=== PATIENT | female | born 1950 | race Hispanic/Latino ===

== ENCOUNTER 2018-01-23 18:05 | Emergency (ER) | payer OTHER ==
--- NOTE | 2018-01-23 19:06 | ER ---
Nurse's Notes [facility] Name: Araceli Celis Age: 67 yrs Sex: Female : 1950 Arrival Date: 01/23/2018 Time: 18:10 Bed 20 Private MD: Diagnosis: Essential (primary) hypertension Presentation: 01/23 18:16 Presenting complaint: Patient states: Sent by Dr Valdes for evaluation of HTN. Patient aj had previous HX of HTN but does not believe that she has HTN and does not take medication because " I don't have high blood pressure and I don't want to take that medicine." Patient has been seen in this facility for HTN several times. Transition of care: patient was not received from another setting of care. Onset of symptoms was January 23, 2018. Risk Assessment: Do you want to hurt yourself or someone else? Patient reports no desire to harm self or others. Initial Sepsis Screen: Does the patient meet any 2 criteria? No. Patient's initial sepsis screen is negative. Does the patient have a suspected source of infection? No. Patient's initial sepsis screen is negative. Care prior to arrival: None. 18:16 Method Of Arrival: Ambulatory 18:16 Acuity: CASTRO 2 aj Triage Assessment: 18:18 General: Appears in no apparent distress. comfortable, Behavior is calm, cooperative, aj appropriate for age. Pain: Denies pain. Neuro: Level of Consciousness is awake, alert, obeys commands, Oriented to person, place, time, situation, Appropriate for age. Neuro: Pupils are dilated. Respiratory: Airway is patent Respiratory effort is even, unlabored, Respiratory pattern is regular, symmetrical. Derm: Skin is intact, is healthy with good turgor, Skin is pink, warm \\T\\ dry. normal. Historical: - Allergies: 18:18 loratadine; aj 18:18 TETRACYCLINES; aj - Home Meds: 18:18 None [Active]; aj - PMHx: 18:18 hiatal hernia; aj - PSHx: 18:18 bladder surgery; aj - Immunization history:: Adult Immunizations up to date. - Social history:: Smoking status: Patient/guardian denies using tobacco. - Ebola Screening: : Patient negative for fever greater than or equal to 101.5 degrees Fahrenheit, and additional compatible Ebola Virus Disease symptoms Patient denies exposure to infectious person Patient denies travel to an Ebola-affected area in the 21 days before illness onset No symptoms or risks identified at this time. Screenin:26 Abuse screen: Denies threats or abuse. Nutritional screening: No deficits noted. em Tuberculosis screening: No symptoms or risk factors identified. Fall Risk None identified. Assessment: 18:26 General: Appears in no apparent distress. comfortable, Behavior is calm, cooperative. em General: Reports pt reports being stressed and hungry, does not want medication for BP, sates she will feel better after eating. Pain: Denies pain. Neuro: Level of Consciousness is awake, alert, obeys commands, Oriented to person, place, time, situation, Denies weakness blurred vision dizziness, headache. Cardiovascular: Capillary refill < 3 seconds Patient's skin is warm and dry. Respiratory: Airway is patent Respiratory effort is even, unlabored, Respiratory pattern is regular, symmetrical, Breath sounds are clear bilaterally. GI: Abdomen is flat, Patient currently denies nausea, vomiting. : No signs and/or symptoms were reported regarding the genitourinary system. EENT: No signs and/or symptoms were reported regarding the EENT system. Derm: Skin is intact, Skin is pink, warm \\T\\ dry. Musculoskeletal: Range of motion: intact in all extremities. 18:30 General: The previous assessment is accurate, call light remains within reach. 19:16 Reassessment: Patient appears in no apparent distress at this time. Patient and/or em family updated on plan of care and expected duration. Pain level reassessed. Patient is alert, oriented x 3, equal unlabored respirations, skin warm/dry/pink. Patient denies pain at this time. Vital Signs: 18:18 BP 196 / 106; Pulse 92; Resp 18; Temp 97.2; Pulse Ox 98% on R/A; Weight 68.04 kg; aj Height 5 ft. 2 in. (157.48 cm); 18:26 BP 193 / 106; Pulse 90; Resp 18; Pulse Ox 99% on R/A; Pain 0/10; em 19:15 BP 186 / 91; Pulse 87; Resp 19; Pulse Ox 99% on R/A; Pain 0/10; em 18:18 Body Mass Index 27.44 (68.04 kg, 157.48 cm) ED Course: 18:10 Patient arrived in ED. mr 18:17 Triage completed. aj 18:18 Arm band placed on right wrist. Patient placed in an exam room. aj 18:21 Dave Landers NP is PHCP. pm1 18:21 Benjamin Bonds MD is Attending Physician. pm1 18:22 Sarkis Correia LVN is Primary Nurse. em 18:26 Patient has correct armband on for positive identification. Placed in gown. Bed in low em position. Call light in reach. 19:04 Sree Edwards MD is Referral Physician. pm1 19:10 No provider procedures requiring assistance completed. Patient did not have IV access em during this emergency room visit. Administered Medications: No medications were administered Outcome: 19:05 Discharge ordered by . pm1 19:10 Discharged to home ambulatory. em 19:10 Condition: good 19:10 Discharge instructions given to patient, Instructed on discharge instructions, follow up and referral plans. Demonstrated understanding of instructions, follow-up care. 19:16 Patient left the ED. em Signatures: Desirae Escamilla RN RN aj DarinAdry mr Sarkis Correia LVN LVN em Cynthia Baca RN RN Dave Landers NP CLAM SHUCKER pm1 Corrections: (The following items were deleted from the chart) 18:18 18:16 Presenting complaint: Patient states: Sent by Dr Valdes for evaluation of HTN. aj Patient had previous HX of HTN but does not believe that she has HTN and does not take medication because " I don't have high blood pressure and I don't want to take that medicine." aj
--- NOTE | 2018-01-23 19:06 | EDPHYS ---
Physician Documentation [facility] Name: Araceli Celis Age: 67 yrs Sex: Female : 1950 Arrival Date: 01/23/2018 Time: 18:10 Bed 20 Private MD: ED Physician Benjamin Bonds HPI: 01/23 19:04 This 67 yrs old Female presents to ER via Ambulatory with complaints of High pm1 Blood Pressure. 19:04 The patient has elevated blood pressure and discovered this at a physician's office, pm1 and sent to the emergency department for evaluation. Onset: The symptoms/episode began/occurred today. Modifying factors: The symptoms are aggravated by Patient reports anxiety and frustration with being in eye doctor's office all day. Associated signs and symptoms: The patient has no apparent associated signs or symptoms, Pertinent negatives: chest pain, dizziness, dyspnea, headache, lightheadedness, nausea, visual changes, vomiting, weakness. The patient has experienced similar episodes in the past, chronically. The patient has been recently seen by a physician: Dr. Valdes for eye examination. Patient with a history of hypertension. Patient has been placed on multiple different blood pressure medications in the past by her PCP and patient refused to continue taking any off them due to various side effects with each medication trial. Patient does not want to take any blood pressure medications and reports that he elevated blood pressure today is a result of stress from being in the doctor's office all day. She wants to go home and eat some food prior to taking any medications. Historical: - Allergies: 18:18 loratadine; aj 18:18 TETRACYCLINES; aj - Home Meds: 18:18 None [Active]; aj - PMHx: 18:18 hiatal hernia; aj - PSHx: 18:18 bladder surgery; aj - Immunization history:: Adult Immunizations up to date. - Social history:: Smoking status: Patient/guardian denies using tobacco. - Ebola Screening: : Patient negative for fever greater than or equal to 101.5 degrees Fahrenheit, and additional compatible Ebola Virus Disease symptoms Patient denies exposure to infectious person Patient denies travel to an Ebola-affected area in the 21 days before illness onset No symptoms or risks identified at this time. ROS: 19:04 Constitutional: Negative for fever, chills, and weight loss, Eyes: Negative for injury, pm1 pain, redness, and discharge, ENT: Negative for injury, pain, and discharge, Neck: Negative for injury, pain, and swelling, Cardiovascular: Negative for chest pain, palpitations, and edema, Respiratory: Negative for shortness of breath, cough, wheezing, and pleuritic chest pain, Abdomen/GI: Negative for abdominal pain, nausea, vomiting, diarrhea, and constipation, Back: Negative for injury and pain, : Negative for injury, bleeding, discharge, and swelling, MS/Extremity: Negative for injury and deformity, Skin: Negative for injury, rash, and discoloration, Neuro: Negative for headache, weakness, numbness, tingling, and seizure. Exam: 19:04 Constitutional: This is a well developed, well nourished patient who is awake, alert, pm1 and in no acute distress. Head/Face: Normocephalic, atraumatic. Eyes: Pupils equal round and reactive to light, extra-ocular motions intact. Lids and lashes normal. Conjunctiva and sclera are non-icteric and not injected. Cornea within normal limits. Periorbital areas with no swelling, redness, or edema. ENT: Nares patent. No nasal discharge, no septal abnormalities noted. Tympanic membranes are normal and external auditory canals are clear. Oropharynx with no redness, swelling, or masses, exudates, or evidence of obstruction, uvula midline. Mucous membranes moist. Neck: Trachea midline, no thyromegaly or masses palpated, and no cervical lymphadenopathy. Supple, full range of motion without nuchal rigidity, or vertebral point tenderness. No Meningismus. Chest/axilla: Normal chest wall appearance and motion. Nontender with no deformity. No lesions are appreciated. Cardiovascular: Regular rate and rhythm with a normal S1 and S2. No gallops, murmurs, or rubs. Normal PMI, no JVD. No pulse deficits. Respiratory: Lungs have equal breath sounds bilaterally, clear to auscultation and percussion. No rales, rhonchi or wheezes noted. No increased work of breathing, no retractions or nasal flaring. Abdomen/GI: Soft, non-tender, with normal bowel sounds. No distension or tympany. No guarding or rebound. No evidence of tenderness throughout. Back: No spinal tenderness. No costovertebral tenderness. Full range of motion. Skin: Warm, dry with normal turgor. Normal color with no rashes, no lesions, and no evidence of cellulitis. MS/ Extremity: Pulses equal, no cyanosis. Neurovascular intact. Full, normal range of motion. 19:04 Neuro: Orientation: is normal, Mentation: is normal, Cranial nerves: CN II- XII are normal as tested, Cerebellar function: normal finger to nose testing, Motor: moves all fours, strength is normal, strength is 5/5 in all extremities, Sensation: is normal, no obvious gross deficits, Gait: is steady, at a normal pace, without difficulty. Vital Signs: 18:18 BP 196 / 106; Pulse 92; Resp 18; Temp 97.2; Pulse Ox 98% on R/A; Weight 68.04 kg; aj Height 5 ft. 2 in. (157.48 cm); 18:26 BP 193 / 106; Pulse 90; Resp 18; Pulse Ox 99% on R/A; Pain 0/10; em 19:15 BP 186 / 91; Pulse 87; Resp 19; Pulse Ox 99% on R/A; Pain 0/10; em 18:18 Body Mass Index 27.44 (68.04 kg, 157.48 cm) aj MDM: 18:21 Patient medically screened. pm1 19:04 Data reviewed: vital signs. Data interpreted: Pulse oximetry: on room air is 99 %. pm1 Interpretation: normal. Counseling: I had a detailed discussion with the patient and/or guardian regarding: the historical points, exam findings, and any diagnostic results supporting the discharge/admit diagnosis, the need for outpatient follow up, a family practitioner, to return to the emergency department if symptoms worsen or persist or if there are any questions or concerns that arise at home. 19:15 Refusal of service: The patient/guardian displays adequate decision making capability pm1 and despite a detailed discussion of alternatives, benefits, risks, and consequences refuses: all lab tests, Medications, Will give the patient a prescription of medications for her blood pressure after eating food. Patient did not want to eat any food from the hospital or to have anyone bring her any food from outside. Believes that her will not be able to get her the right food. Patient's blood pressure improved and will prescribe Norvasc and instructed patient to follow up with her PCP for further blood pressure management . Administered Medications: No medications were administered Disposition: 01/23/18 19:05 Discharged to Home. Impression: Essential (primary) hypertension. - Condition is Stable. - Discharge Instructions: Hypertension, How to Take Your Blood Pressure, [id number], DASH Eating Plan, Managing Your Hypertension. - Prescriptions for Norvasc 10 mg Oral Tablet - take 1 tablet by ORAL route once daily; 30 tablet. - Medication Reconciliation Form, Thank You Letter form. - Follow up: Emergency Department; When: As needed; Reason: Worsening of condition. Follow up: Sree Edwards MD; When: 2 - 3 days; Reason: Recheck today's complaints, Continuance of care, Re-evaluation by your physician. - Problem is new. - Symptoms have improved. Addendum: 01/26/2018 09:37 Co-signature as Attending Physician, Benjamin Bonds MD I agree with the assessment and c noel plan of care. Signatures: Desirae Escamilla RN RN aj Anderson, Corey, MD MD cha Munoz, Edgar, MANAGER AVIATION MANAGER AVIATION em Dave Landers, KNOWLEDGE ANALYST KNOWLEDGE ANALYST pm1 Corrections: (The following items were deleted from the chart) 01/23 19:16 19:05 01/23/2018 19:05 Discharged to Home. Impression: Essential (primary) em hypertension. Condition is Stable. Forms are Medication Reconciliation Form, Thank You Letter, Antibiotic Education, Prescription Opioid Use. Follow up: Emergency Department; When: As needed; Reason: Worsening of condition. Follow up: Sree Edwards; When: 2 - 3 days; Reason: Recheck today's complaints, Continuance of care, Re-evaluation by your physician. Problem is new. Symptoms have improved. pm1
[2018-01-23 21:05] VITALS: TEMP 97.2
[2018-01-23 21:06] VITALS: O2SAT 99
[2018-01-23 21:08] VITALS: BP 186/91
== END 2018-01-23 19:16 | disposition home or self-care (01) ==
LOC: ER 18:05
DX: I10 Essential (primary) hypertension (principal); Z88.1 Allergy status to other antibiotic agents; Z88.8 Allergy status to other drugs, medicaments and biological substances
CPT/HCPCS: 99281

== ENCOUNTER 2018-10-10 02:07 | Inpatient (IN) | payer OTHER ==
[2018-10-10 03:24] LABS: Absolute Lymphocytes (CBC) 2.7 K/uL (0.7-4.9); Basophils % 0.4 % (0-1.3); Hematocrit 45.5 % (36.0-45.0); Lymphocytes % 30.4 % (15.3-44.8); MPV 8.5 fL (7.6-11.3); RBC Red Blood Cell Count 5.01 M/uL (3.86-4.86)
[2018-10-10] MEDS ORDERED: LABETALOL HCL 100 MG/20 ML ONE (03:36)
[2018-10-10 03:38] LABS: Albumin 4.3 g/dL (3.4-5.0); Bilirubin Direct 0.1 mg/dL (0-0.2); Bilirubin Total 0.4 mg/dL (0.2-1.0); Potassium 3.2 mmol/L (3.5-5.1); Protein, Total 8.9 g/dL (6.4-8.2); Troponin (Emerg Dept Use Only) 0.03 ng/mL (0.0-0.045)
--- NOTE | 2018-10-10 05:16 | ER ---
Nurse's Notes [facility] Name: Araceli Celis Age: 68 yrs Sex: Female : 1950 Arrival Date: 10/10/2018 Time: 02:10 Bed 18 Private MD: Diagnosis: Malignant Hypertension;Chest pain, unspecified Presentation: 10/10 02:30 Presenting complaint: Patient states: around 0200H felt throbbing pain on the right rr5 side of my neck,sudden tightening on my inner arms and lower extremities like a pressure felt. my throat having like heart burn pain after I ate cinnamon cookie pain score around 2/10. denies dizziness, N/V or LOC. 02:30 Transition of care: patient was not received from another setting of care. Onset of rr5 symptoms was October 10, 2018 at 02:00. Risk Assessment: Do you want to hurt yourself or someone else? Patient reports no desire to harm self or others. Initial Sepsis Screen: Does the patient meet any 2 criteria? No. Patient's initial sepsis screen is negative. Does the patient have a suspected source of infection? No. Patient's initial sepsis screen is negative. Care prior to arrival: None. 02:30 Method Of Arrival: Ambulatory rr5 02:30 Acuity: CASTRO 3 rr5 Historical: - Allergies: 02:30 loratadine; rr5 02:30 TETRACYCLINES; rr5 03:00 perfume; rr5 - Home Meds: 02:30 None [Active]; rr5 - PMHx: 02:30 hiatal hernia; Hypertension; bladder problem; rr5 - PSHx: 02:30 bladder surgery; rr5 - Immunization history:: Adult Immunizations up to date, Last tetanus immunization: < 5 years ago. - Social history:: Smoking status: Patient/guardian denies using tobacco, Patient/guardian denies using alcohol, street drugs. - Ebola Screening: : Patient negative for fever greater than or equal to 101.5 degrees Fahrenheit, and additional compatible Ebola Virus Disease symptoms Patient denies exposure to infectious person Patient denies travel to an Ebola-affected area in the 21 days before illness onset. - Family history:: not pertinent. - Hospitalizations: : No recent hospitalization is reported. Screenin:35 Abuse screen: Denies threats or abuse. Denies injuries from another. Nutritional rr5 screening: No deficits noted. Tuberculosis screening: No symptoms or risk factors identified. Fall Risk IV access (20 points). Total [place] Fall Scale indicates No Risk (0-24 pts). Assessment: 02:30 General: Appears in no apparent distress. comfortable, Behavior is calm, cooperative, rr5 appropriate for age. Pain: Complains of pain in right arm, left arm, right leg, left leg and neck Pain does not radiate. Pain currently is 2 out of 10 on a pain scale. Quality of pain is described as pressure, tingling. 02:30 Neuro: Level of Consciousness is awake, alert, obeys commands, Oriented to person, rr5 place, time, situation, Appropriate for age Child Care Teacher are equal bilaterally Moves all extremities. Full function Gait is steady, Speech is normal, Facial symmetry appears normal, Pupils are PERRLA. Cardiovascular: Capillary refill < 3 seconds Patient's skin is warm and dry. Respiratory: Airway is patent Respiratory effort is even, unlabored, Respiratory pattern is regular, symmetrical. GI: Abdomen is round non-distended, Reports heart burn Patient currently denies nausea, vomiting. : No signs and/or symptoms were reported regarding the genitourinary system. EENT: No signs and/or symptoms were reported regarding the EENT system. Derm: Skin is intact, Skin temperature is warm. Musculoskeletal: Capillary refill < 3 seconds, Range of motion: Reports pain in right arm, left arm, right leg, left leg and neck. 03:40 Reassessment: Patient appears in no apparent distress at this time. Patient is alert, rr5 oriented x 3, equal unlabored respirations, skin warm/dry/pink. went to CT scan. Reassessment:. 04:00 Reassessment: Patient appears in no apparent distress at this time. Patient is alert, rr5 oriented x 3, equal unlabored respirations, skin warm/dry/pink. back from CT scan went to restroom voided freely steady gait noted. 04:55 Reassessment: Patient appears in no apparent distress at this time. Patient is alert, rr5 oriented x 3, equal unlabored respirations, skin warm/dry/pink. I feel fine now as verbalized by patient. ED provider reassess the patient advised for admission, she agreed for the plan of care. 05:15 Reassessment: Patient appears in no apparent distress at this time. Patient denies pain rr5 at this time. ED provider aware for the BP reading. order made and carried out.. 05:40 Reassessment: Patient appears in no apparent distress at this time. Patient is alert, rr5 oriented x 3, equal unlabored respirations, skin warm/dry/pink. dr. rivera at bedside seen and examining the patient. 06:10 Reassessment: dr. rivera informed for the BP 159/93mmHG hold the hydralazine for now. rr5 07:00 Reassessment: Patient appears in no apparent distress at this time. Patient is alert, rr5 oriented x 3, equal unlabored respirations, skin warm/dry/pink. awaiting for transfer to room 421. 07:14 Reassessment: Patient appears in no apparent distress at this time. Patient and/or em family updated on plan of care and expected duration. Pain level reassessed. Patient is alert, oriented x 3, equal unlabored respirations, skin warm/dry/pink. denies SOB, chest pain, numbness or tingling in hands, all symptoms have resolved, reports only being tired and sleepy Patient denies pain at this time. Patient states feeling better. Patient states symptoms have improved. Vital Signs: 02:30 BP 197 / 114; Pulse 97; Resp 17; Temp 97.3; Pulse Ox 99% ; Weight 65.32 kg; Height 5 rr5 ft. 2 in. (157.48 cm); Pain 2/10; 03:00 BP 188 / 113; Pulse 98; Resp 17; Pulse Ox 99% ; rr5 03:38 BP 176 / 107; Pulse 82; Resp 18; Pulse Ox 96% on 2 lpm NC; rr5 04:20 BP 169 / 101; Pulse 88; Resp 15; Pulse Ox 100% ; Pain 0/10; rr5 05:00 BP 185 / 102; Pulse 88; Resp 19; Pulse Ox 99% on R/A; rr5 06:05 BP 159 / 93; Pulse 77; Resp 15; Temp 97.5; Pulse Ox 99% on R/A; Pain 0/10; rr5 07:00 BP 111 / 66; Pulse 71; Resp 16; Pulse Ox 99% on R/A; rr5 02:30 Body Mass Index 26.34 (65.32 kg, 157.48 cm) rr5 ED Course: 02:10 Patient arrived in ED. ds1 02:21 Lee Puckett MD is Attending Physician. rn 02:35 Arm band placed on right wrist. EKG completed in triage. Results shown to MD. rr5 02:38 Patient has correct armband on for positive identification. Placed in gown. Bed in low rr5 position. Call light in reach. Side rails up X2. continuous mining machine operator on. Pulse ox on. NIBP on. 02:40 Davin Peterson, FLO is Primary Nurse. rr5 02:45 Triage completed. rr5 02:49 X-ray completed. Portable x-ray completed in exam room. Patient tolerated procedure kw well. 02:50 No provider procedures requiring assistance completed. Inserted saline lock: 20 gauge rr5 in right forearm, using aseptic technique. Blood collected. 02:52 XRAY Chest (1 view) In Process Unspecified. EDMS 03:00 Warm blanket given. Head of bed elevated. rr5 03:24 Radiology exam delayed due to lab results not completed at this time. eh 04:10 CT completed. Patient tolerated procedure well. Patient moved to CT via stretcher. Patient moved back from CT. 04:22 CT Aorta for Dissection In Process Unspecified. EDMS 05:11 Gagandeep Hoyos MD is Hospitalizing Provider. rn 06:16 Patient admitted, IV remains in place. intact, No redness/swelling at site. rr5 Administered Medications: 03:25 Drug: Labetalol 5 mg Route: IVP; Site: right forearm; rr5 04:25 Follow up: Response: No adverse reaction rr5 05:25 Drug: Aspirin Chewable Tablet 324 mg Route: PO; rr5 06:25 Follow up: Response: No adverse reaction rr5 05:27 Drug: cloNIDine 0.2 mg Route: PO; rr5 06:30 Follow up: Response: No adverse reaction rr5 07:02 Not Given (Physician Discretion; hold as per dr. hoyos thru phone BP159/93 at 0500H): rr5 hydrALAZINE 20 mg IV at bolus once; For SBP > 140 mmHg. Hold if less than 120 mmHg. Outcome: 05:14 Decision to Hospitalize by Provider. rn 07:19 Admitted to Tele accompanied by tech, via wheelchair, room 423, with chart, Report rr5 called to FLO Armas 07:19 Condition: good 07:19 Instructed on the need for admit, Demonstrated understanding of instructions. 07:59 Patient left the ED. rr5 Signatures: Dispatcher [employer] EDTc Taylor Edgar, MANAGER TAX MANAGER TAX Danna Messina ds1 Lee Puckett MD MD rn Whitley, Kimberlee kw Roque, Raymond, RN RN rr5 Corrections: (The following items were deleted from the chart) 03:07 03:00 BP 153 / 97; Pulse 98bpm; Resp 17bpm; Pulse Ox 99%; rr5 rr5
--- NOTE | 2018-10-10 05:16 | EDPHYS ---
Physician Documentation [facility] Name: Araceli Celis Age: 68 yrs Sex: Female : 1950 Arrival Date: 10/10/2018 Time: 02:10 Bed 18 Private MD: ED Physician Lee Puckett HPI: 10/10 02:56 This 68 yrs old Female presents to ER via Ambulatory with complaints of High rn Blood Pressure. 02:56 This 68 yrs old Female presents to ER via Ambulatory with complaints of High rn Blood Pressure, chest pain. 02:56 The patient has elevated blood pressure and discovered this at home. Onset: The rn symptoms/episode began/occurred just prior to arrival. Modifying factors:. Severity of symptoms: At its worst the blood pressure was moderate, in the emergency department the blood pressure is unchanged. The patient has not experienced similar symptoms in the past. Reports woke up from sleep feeling "off", reports chest pressure, radiates to bilateral axilla/back/abdomen, began prior to arrival, has never had before, + nausea. Slowly improving. Denies tearing/ripping.. Historical: - Allergies: 02:30 loratadine; rr5 02:30 TETRACYCLINES; rr5 03:00 perfume; rr5 - Home Meds: 02:30 None [Active]; rr5 - PMHx: 02:30 hiatal hernia; Hypertension; bladder problem; rr5 - PSHx: 02:30 bladder surgery; rr5 - Immunization history:: Adult Immunizations up to date, Last tetanus immunization: < 5 years ago. - Social history:: Smoking status: Patient/guardian denies using tobacco, Patient/guardian denies using alcohol, street drugs. - Ebola Screening: : Patient negative for fever greater than or equal to 101.5 degrees Fahrenheit, and additional compatible Ebola Virus Disease symptoms Patient denies exposure to infectious person Patient denies travel to an Ebola-affected area in the 21 days before illness onset. - Family history:: not pertinent. - Hospitalizations: : No recent hospitalization is reported. ROS: 02:59 Constitutional: Negative for fever, chills, and weight loss, Eyes: Negative for injury, rn pain, redness, and discharge, Cardiovascular: Negative for palpitations, and edema, Respiratory: Negative for cough, wheezing, and pleuritic chest pain, Abdomen/GI: Negative for diarrhea, and constipation, MS/Extremity: Negative for injury and deformity, Skin: Negative for injury, rash, and discoloration, Neuro: Negative for headache, weakness, numbness, tingling, and seizure. Exam: 02:59 Constitutional: This is a well developed, well nourished patient who is awake, alert, rn appears anxious Head/Face: Normocephalic, atraumatic. Eyes: Pupils equal round and reactive to light, extra-ocular motions intact. Lids and lashes normal. Conjunctiva and sclera are non-icteric and not injected. Cornea within normal limits. Periorbital areas with no swelling, redness, or edema. ENT: MMM Cardiovascular: Regular rate and rhythm. No pulse deficits. Respiratory: Lungs have equal breath sounds bilaterally, clear to auscultation. No increased work of breathing, no retractions or nasal flaring. Abdomen/GI: soft, non-tender MS/ Extremity: Pulses equal, no cyanosis. Neurovascular intact. Full, normal range of motion. Equal circumference. Neuro: Awake and alert, GCS 15, oriented to person, place, time, and situation. Cranial nerves II-XII grossly intact. Motor strength 5/5 in all extremities. Sensory grossly intact. Cerebellar exam normal. Vital Signs: 02:30 BP 197 / 114; Pulse 97; Resp 17; Temp 97.3; Pulse Ox 99% ; Weight 65.32 kg; Height 5 rr5 ft. 2 in. (157.48 cm); Pain 2/10; 03:00 BP 188 / 113; Pulse 98; Resp 17; Pulse Ox 99% ; rr5 03:38 BP 176 / 107; Pulse 82; Resp 18; Pulse Ox 96% on 2 lpm NC; rr5 04:20 BP 169 / 101; Pulse 88; Resp 15; Pulse Ox 100% ; Pain 0/10; rr5 05:00 BP 185 / 102; Pulse 88; Resp 19; Pulse Ox 99% on R/A; rr5 06:05 BP 159 / 93; Pulse 77; Resp 15; Temp 97.5; Pulse Ox 99% on R/A; Pain 0/10; rr5 07:00 BP 111 / 66; Pulse 71; Resp 16; Pulse Ox 99% on R/A; rr5 02:30 Body Mass Index 26.34 (65.32 kg, 157.48 cm) rr5 MDM: 02:21 Patient medically screened. rn 05:09 Differential diagnosis: hypertensive crisis, Malignant HTN. Data reviewed: vital signs, rn nurses notes, lab test result(s), EKG, radiologic studies, plain films, and as a result, I will admit patient. Counseling: I had a detailed discussion with the patient and/or guardian regarding: the historical points, exam findings, and any diagnostic results supporting the discharge/admit diagnosis, lab results, radiology results, the need for further work-up and treatment in the hospital. Response to treatment: the patient's symptoms have mildly improved after treatment, and as a result, I will admit patient. Admission orders: after a detailed discussion of the patient's condition and case, the admit orders are written by me. ED course: Pt with persistently high blood pressure, not on meds, woke her up from sleep with chest pain, very anxious woman, will admit for chest pain rule out and BP control for malignant HTN. Admitted to Dr. Hoyos.. 10/10 02:33 Order name: Basic Metabolic Panel; Complete Time: 03:39 10/10 02:33 Order name: CBC with Diff; Complete Time: 03:32 10/10 02:33 Order name: LFT's; Complete Time: 03:39 10/10 02:33 Order name: NT PRO-BNP; Complete Time: 03:39 10/10 02:33 Order name: Troponin (emerg Dept Use Only); Complete Time: 03:39 10/10 02:33 Order name: Lipase; Complete Time: 03:39 10/10 02:33 Order name: XRAY Chest (1 view) rn 10/10 02:33 Order name: EKG; Complete Time: 02:36 10/10 02:33 Order name: Cardiac monitoring; Complete Time: 03:00 10/10 02:33 Order name: CT Aorta for Dissection rn 10/10 02:33 Order name: EKG - Nurse/Tech; Complete Time: 03:00 10/10 02:33 Order name: IV Saline Lock; Complete Time: 03:00 10/10 02:33 Order name: Labs collected and sent; Complete Time: 03:00 10/10 02:33 Order name: O2 Per Protocol; Complete Time: 03:01 rn 10/10 02:33 Order name: O2 Sat Monitoring; Complete Time: 03:01 rn Administered Medications: 03:25 Drug: Labetalol 5 mg Route: IVP; Site: right forearm; rr5 04:25 Follow up: Response: No adverse reaction rr5 05:25 Drug: Aspirin Chewable Tablet 324 mg Route: PO; rr5 06:25 Follow up: Response: No adverse reaction rr5 05:27 Drug: cloNIDine 0.2 mg Route: PO; rr5 06:30 Follow up: Response: No adverse reaction rr5 07:02 Not Given (Physician Discretion; hold as per dr. hoyos thru phone BP198/19 at 0500H): rr5 hydrALAZINE 20 mg IV at bolus once; For SBP > 140 mmHg. Hold if less than 120 mmHg. Disposition: 10/10/18 05:14 Hospitalization ordered by Gagandeep Hoyos for Observation. Preliminary diagnosis are Malignant Hypertension, Chest pain, unspecified. - Bed requested for Telemetry/MedSurg (observation). - Status is Observation. rr5 - Condition is Stable. - Problem is new. - Symptoms are unchanged. UTI on Admission? No Signatures: Dispatcher [employer] EDMS Lee Puckett MD MD rn Garcia, Cindy, RN RN cg Roque, Raymond, RN RN rr5 Corrections: (The following items were deleted from the chart) 06:13 05:14 Hospitalization Ordered by Gagandeep Hoyos MD for Observation. Preliminary diagnosis cg is Malignant Hypertension; Chest pain, unspecified. Bed requested for Telemetry/MedSurg (observation). Status is Observation. Condition is Stable. Problem is new. Symptoms are unchanged. UTI on Admission? No. rn 07:59 06:13 10/10/2018 05:14 Hospitalization Ordered by Gagandeep Hoyos MD for Observation. rr5 Preliminary diagnosis is Malignant Hypertension; Chest pain, unspecified. Bed requested for Telemetry/MedSurg (observation). Status is Observation. Condition is Stable. Problem is new. Symptoms are unchanged. UTI on Admission? No. cg
[2018-10-10] MEDS ORDERED: cloNIDine HCl 0.1 MG TAB ONE (05:38)
[2018-10-10] MEDS ORDERED: ASPIRIN 81 MG CHEWABLE TABLET ONE (05:38)
[2018-10-10] MEDS ORDERED: HYDRALAZINE HCL 20 MG/ML VIAL ONE (06:19)
[2018-10-10] MEDS ORDERED: MORPHINE 2 MG/ML SYR IV PRN (07:22)
[2018-10-10] MEDS ORDERED: ACETAMINOPHEN 500 MG TAB PO PRN (07:22)
[2018-10-10] MEDS ORDERED: NITROGLYCERIN 0.4 MG/TAB SL PRN (07:22)
[2018-10-10 08:01] VITALS: BMI 26.3
[2018-10-10 08:49] LABS: Troponin I 0.57 ng/mL (0.0-0.045)
[2018-10-10] MEDS: METOPROLOL TAR 25 MG TAB PO SCH ×2 (09:00→21:00)
[2018-10-10] MEDS: LISINOPRIL 10 MG TAB PO SCH (09:00)
[2018-10-10] MEDS: ENOXAPARIN 40 MG/0.4 ML SQ SCH (09:00)
--- NOTE | 2018-10-10 09:46 | RAD REPORT ---
EXAM DESCRIPTION: Sarah Single View10/10/2018 2:51 am CLINICAL HISTORY: Chest pain COMPARISON: 2016 FINDINGS: The lungs appear clear of acute infiltrate. The heart is mildly enlarged IMPRESSION: No acute abnormalities displayed
--- NOTE | 2018-10-10 10:11 | CON ---
History Of Present Illness: She came to the hospital with complaints of what she told me is quite a bit different from what it sounds like she told the emergency room doctor. She had pain in both upper arms, pain in the jaw, some tightness in the chest. She said none of the pain was very painful. It felt more like blood pressure cuffs were inflated on both upper arms and lasted about 45 minutes. Since being here only a few hours, first troponin was normal , the second is elevated. Four years ago she had symptoms that were at least a little bit similar to this. We did a stress test that showed ischemia. I recommended a cardiac cath and she refused to have a cardiac cath. She was in our hospital in 2016 and again refused to have a cardiac cath. She is convinced she does not have heart disease despite what the tests show and suggestive symptoms. She does not take any home medicines. She does not have diabetes. I think she has had hypertension in the past. When she came to the emergency room, her blood pressure was elevated. Physical Examination: General: She is alert, oriented, pleasant. Lungs: Clear. Heart: Exam normal. No distress. All of her symptoms have gone away. Vital Signs: Her blood pressure is 105/62. Presently, she is receiving aspirin, Lipitor, Lovenox, lisinopril, metoprolol and nitroglycerin sublingual as needed. Impression: The patient has had a non-ST elevation non-Q-wave myocardial infarction. She should reconsider going through a cardiac cath. She probably needs a stent. I will discuss it with her again tomorrow if she decides to go with strictly medical therapy. I will recommend aspirin, Plavix, nitroglycerin, and the medicine she is on otherwise. ALMA Voice ID: [id number] Report ID: [id number] GAY
[2018-10-10] MEDS: CLOPIDOGREL 75 MG TABLET PO SCH (11:00)
--- NOTE | 2018-10-10 12:23 | RAD REPORT ---
EXAM DESCRIPTION: CT - Angio Aorta For Dissection - 10/10/2018 5:00 am CLINICAL HISTORY: Hypertension, chest pain, abd pressure;Chest pain COMPARISON: None. TECHNIQUE: CT CHEST ABDOMEN PELVIS ANGIOGRAPHY WITH IV CONTRAST on 10/10/2018 2:33 AM CDT. MIPS recon structions were generated. This exam was performed according to our departmental dose-optimization program, which includes autom ated exposure control, adjustment of the mA and/or kV according to patient size and/or use of iterati ve reconstruction technique. FINDINGS: Vascular: Thoracic aorta is normal in course and caliber without aneurysm or dissection. P ulmonary arteries are adequately opacified without acute or chronic filling defects. Abdominal aorta is normal in course and caliber without aneurysm. Pelvic arteries are patent without aneurysm or occl usion. The heart is borderline in size. There is no pericardial effusion. Intrathoracic lymph nodes are not enlarged. There is no pleural effusion, pleural thickening or pneumothorax. Central airways are patent. Periphe ral right upper lobe nodule measures 9 mm. Abdomen: There are several anterior hepatic cirrhosis. GW glands are normal. There is no biliary dila tation. Gallbladder is normal in appearance. The pancreas and spleen are normal in appearance. Kidney s are mildly atrophic. Upper pole right renal cyst is present. There is no free air. There is no retroperitoneal adenopathy. Pelvis: There is no bowel obstruction. Urinary bladder is unremarkable. There is no free fluid. Uteru s is enlarged containing multiple fibroids. Appendix is normal. Skeleton: There are no acute osseous findings. No suspicious bony lesions. IMPRESSION: No aortic dissection or aneurysm. No pulmonary embolus. No pneumonia. Electronically signed by: Turner Goldsmith MD 10/10/2018 4:37 AM CDT Due to temporary technical issues with the PACS/Fluency reporting system, reports are being signed by the in house radiologist as a courtesy to ensure prompt reporting. The interpreting radiologist is f ully responsible for the content of the report.
[2018-10-10] MEDS: ATORVASTATIN 40 MG TAB PO SCH (21:00)
--- NOTE | 2018-10-10 21:46 | HP ---
Date of Admission: 10/10/2018 Chief Complaint: Chest pressure, tightness. Code Status: Full. History Of Present Illness: Patient is a 68-year-old female with a past medical history of hypertens ion, has been evaluated previously for coronary artery disease, has been refusing cardiac catheteriza tion back in 2014 and then again in 2016, comes in with uncontrolled blood pressure. Patient stated that yesterday afternoon her blood pressure was elevated, had some generalized malaise-type feeling. This morning around 2 a.m., when the patient woke up due to her bladder incontinence, she felt tight ness in her chest with tightness in her arms and jaw. Therefore, patient came into the ER for furthe r evaluation. Her symptoms are constant, moderate, progressively worsening. No alleviating factors. Her workup revealed a troponin of 0.03. Subsequent troponin level was 0.57. Patient had CT abdome n to rule out dissection, which was negative. Patient was then referred for admission. When seen in the ER, she was awake, alert, oriented x3, not in any acute distress. Past Medical History: Hypertension, bladder prolapse with incontinence. Past Surgical History: Surgery on the right hand, right shoulder rotator cuff surgery, bladder sling placement, left knee arthritis with fluid removal, bladder surgery. Allergies: LORATADINE AND TETRACYCLINE. Medications: None. Family History: Patient states she does not know her parents history. She did not live with them. Social History: Patient denies any tobacco use or alcohol use. Patient is , lives at home. Independent in her activities of daily living. Review of Systems: Ten-point system reviewed, negative except as per HPI. Physical Examination: Vital Signs: Temperature 97.3, heart rate 97, blood pressure 197/114, respirations 17, O2 of 99% on 2 L via nasal cannula. General: Awake, alert, oriented x3. Not in any acute distress, elderly female. HEENT: Normocephalic, atraumatic. PERRLA. EOMI. Moist mucous membranes. Oropharynx is clear. Co njunctivae anicteric. Neck: Supple. No JVD. Trachea midline CV: S1, S2. Regular rate and rhythm. Peripheral pulses pr esent. Respiratory: Moving air well bilaterally. No wheezing or stridor. No use of accessory muscles. Gastrointestinal: Abdomen is soft, nontender, nondistended. Positive bowel sounds. No guarding or rigidity. Extremities: No clubbing, cyanosis, or edema. No calf tenderness. Neuro: Cranial nerves 2 through 12 intact grossly. No focal neurological deficit. Speech is normal . Skin: No rashes. Normal skin turgor. Psych: Mood is okay. Affect is full. Insight and judgment are fair. Laboratory Data: WBC 9, H and H 15.3 and 45.5, platelets 281, neutrophils 60%. Sodium 140, potassiu m 3.2, chloride 105, CO2 of 30, BUN 15, creatinine 0.73, glucose 104, calcium 9.6. Troponin 0.03 and 0.57. Triglycerides 83, cholesterol 229, LDL 152, HDL 60. Chest x-ray shows no acute abnormalities. I personally reviewed CT dissection. No aortic dissection or aneurysm. No pulmonary embolus. No pneumonia. There are several anterior hepatic cirrhosis. G allbladder is normal. Kidneys mildly atrophic. Peripheral right upper lobe nodule, 9 mm. Assessment: A 68-year-old female with. 1.Gnt-DA-bvkeejs myocardial infarction. Patient will be continued on chest pain guidelines, statin, aspirin, Plavix, and beta raudel. Appreciate Dr. Palmer' input. He recommends cardiac catheteriza tion, which the patient has refused multiple times in the past. We will continue with medical manage ment for now. Continue with nitroglycerin and morphine as needed for chest pain. 2.Uncontrolled hypertension. We will continue with LILLY inhibitor and beta-raudel. Add p.r.n. medi cations. 3.Right upper lobe nodule, 9 mm. The patient will need repeat CT scan for surveillance and possible biopsy. 4.Renal insufficiency. CT scan shows atrophic kidneys, which is likely due to her uncontrolled bloo d pressure. 5.Mixed hyperlipidemia. Patient's cholesterol and LDL are elevated. 6.Hypokalemia. We will replace and monitor. 7.Polycythemia, unclear etiology. 8.History of hiatal hernia. 9.Deep venous thrombosis prophylaxis with Lovenox. Plan: Admit the patient to Med-Surg, place as inpatient. Length of stay, greater than 2 midnights. LETA Voice ID: [id number]
[2018-10-11 06:22] LABS: Absolute Lymphocytes (CBC) 2.4 K/uL (0.7-4.9); Basophils % 0.8 % (0-1.3); Hematocrit 40.8 % (36.0-45.0); Lymphocytes % 33.2 % (15.3-44.8); RBC Red Blood Cell Count 4.45 M/uL (3.86-4.86)
--- NOTE | 2018-10-11 06:31 | EKG ---
Test Date: 2018-10-10 Test Time: 02:39:39 Cyber Systems Administrator: RR MEASUREMENT RESULTS: Intervals: Rate: 93 [place]: 178 QRSD: 76 QT: 410 QTc: 509 [place]: P: 64 [place]: 178 QRS: 40 T: 110 INTERPRETIVE STATEMENTS: Normal sinus rhythm Nonspecific ST and T wave abnormality Prolonged QT Abnormal ECG Compared to ECG 12/04/2015 23:39:45 ST (T wave) deviation now present Prolonged QT interval now present Left ventricular hypertrophy no longer present Electronically Signed On 10-11-18 06:29:52 CDT by Narendra Palmer
[2018-10-11 06:36] LABS: Potassium 3.8 mmol/L (3.5-5.1)
[2018-10-11] MEDS: ENOXAPARIN 40 MG/0.4 ML SQ SCH (09:00)
[2018-10-11] MEDS: ASPIRIN EC 81 MG TAB PO SCH (10:09)
[2018-10-11] MEDS: LISINOPRIL 10 MG TAB PO SCH (10:09)
[2018-10-11] MEDS: CLOPIDOGREL 75 MG TABLET PO SCH (10:09)
[2018-10-11] MEDS: METOPROLOL TAR 25 MG TAB PO SCH ×2 (10:10→20:01)
--- NOTE | 2018-10-11 12:54 | PN ---
Subjective: Ms. Celis has re-stated that she does not want to do a cardiac cath. She is just not ready to do it. We could send her to another hospital, get another physician. She is asymptomatic and is interested in going home Therefore, given her wishes and limits on pursuing what we normally do, I would recommend she go home taking LILLY inhibitor, beta raudel, aspirin, Plavix, and large dose statin, and see the heart doctor of her choice, and discuss the issue again. She clearly has CAD and it is very likely she would benefit basically from a cardiac cath. ALMA Voice ID: [id number] Report ID: [id number] GAY
--- NOTE | 2018-10-11 14:33 | PN ---
Date of Progress Note: 10/11/2018 Subjective: Patient was seen and examined. Chart reviewed and case discussed with RN. I had a long discussion with the patient regarding her treatment plan, her labs, why she needs to be treated for NSTEMI and why she needs cardiac catheterization. She was not concerned with those with that disease process at all. She was rather concerned and kept complaining about the food. She did not like the heart healthy diet that was provided by dietary and to the nurses, she keeps complaining about her b ladder prolapse and once that is fixed, she states that her bladder prolapse is causing her heart pro blems. She does not seem to understand the gravity of her situation. She does not feel that she has had a heart attack. She does not believe that she needs any treatment. Medications: List reviewed. Physical Examination: Vital Signs: Temperature 99.3, heart rate 62, blood pressure 145/66, respirations 16, O2 of 96% on r oom air. General: Awake, alert, oriented x3. No acute distress. Elderly female. CV: S1, S2. No murmurs. Respiratory: Moving air well bilaterally. No wheezing. Gastrointestinal: Abdomen is soft, nontende r, nondistended. Positive bowel sounds. Extremities: No clubbing, cyanosis, edema. Neurologic: Nonfocal. Laboratory Data: Sodium 143, potassium 3.8, chloride 107, CO2 of 31, BUN 13, creatinine 0.75, glucos e 85, calcium 8.9. WBC 7.3, H and H 13.5 and 40.8, platelets 281. Assessment And Plan: A 68-year-old female with: 1.Qir-LC-rymjofk elevation myocardial infarction. Continue with chest pain guidelines. Patient is refusing part of her treatment. Appreciate Dr. Palmer' input. Cardiac catheterization planned for a .m. 2.Uncontrolled hypertension, improved. We will continue medications. 3.Right upper lobe lung nodule, 9 mm. We will need repeat CT scan for surveillance and possible bio psy. 4.Renal insufficiency, likely secondary to uncontrolled hypertension. We will continue monitoring k idney function. 5.Mixed hyperlipidemia. Continue with statin. 6.Hypokalemia. We will replace and monitor. 7.Noncompliance, intentional. 8.Polycythemia. 9.History of hiatal hernia. 10.Bladder prolapse. 11.Deep venous thrombosis prophylaxis with Lovenox. Plan: Plan for heart catheterization. Patient needs possible psychiatric evaluation. She does not seem to grasp the reason for her medical care is overly concerned with her bladder prolapse. Does no t understand that with the active NSTEMI, she is not a candidate for any sort of intervention for her bladder. She has been seen by Dr. Navarro, who has recommended that she see a specialist in [place]. This can be further worked up as an outpatient after her acute medical condition has resolved. Karen ent has an overall poor prognosis due to her noncompliance. /GENOVEVA Voice ID: [id number] Report ID: [id number]
[2018-10-11] MEDS: ATORVASTATIN 40 MG TAB PO SCH (20:02)
[2018-10-12] MEDS: ENOXAPARIN 40 MG/0.4 ML SQ SCH (09:00)
[2018-10-12] MEDS: LISINOPRIL 10 MG TAB PO SCH (09:48)
[2018-10-12] MEDS: CLOPIDOGREL 75 MG TABLET PO SCH (09:49)
[2018-10-12] MEDS: ASPIRIN EC 81 MG TAB PO SCH (09:49)
[2018-10-12] MEDS: METOPROLOL TAR 25 MG TAB PO SCH ×2 (09:49→20:57)
--- NOTE | 2018-10-12 10:06 | ECHO ---
HEIGHT: 5 ft 2 in WEIGHT: 144 lb 0.095 oz DATE OF STUDY: 10/12/[address]: Gagandeep Elliott MD 2-DIMENSIONAL: YES M.MODE: YES DOPPLER: YES COLOR FLOW: YES TDS: NO PORTABLE: NO DEFINITY: NO BUBBLE STUDY: NO DIAGNOSIS: CHEST PAIN CARDIAC HISTORY: CATHERIZATION: NO SURGERY: NO PROSTHETIC VALVE: NO PACEMAKER: NO MEASUREMENTS (cm) DIASTOLIC (NORMALS) SYSTOLIC (NORMALS) IVSd 1.0 (0.6-1.2) LA Diam 3.7 (1.9-4.0) LVEF 68% LVIDd 4.6 (3.5-5.7) LVIDs 2.9 (2.0-3.5) %FS 38% LVPWd 1.1 (0.6-1.2) Ao Diam 2.7 (2.0-3.7) 2 DIMENSIONAL ASSESSMENT: RIGHT ATRIUM: NORMAL LEFT ATRIUM: NORMAL RIGHT VENTRICLE: NORMAL LEFT VENTRICLE: NORMAL TRICUSPID VALVE: NORMAL MITRAL VALVE: NORMAL PULMONIC VALVE: NORMAL AORTIC VALVE: NORMAL PERICARDIAL EFFUSION: NONE AORTIC ROOT: NORMAL LEFT VENTRICULAR WALL MOTION: APICAL HYPOKINESIS. DOPPLER/COLOR FLOW: MILD TRICUSPID REGURGITATION. NORMAL RIGHT VENTRICULAR SYSTOLIC PRESSURE. COMMENTS: NORMAL LEFT VENTRICULAR EJECTION FRACTION WITH APICAL HYPOKINESIS. MILD TRICUSPID REGURGITATION. TECHNOLOGIST: Khloe JOSE
[2018-10-12] MEDS ORDERED: HEPA 1000U/500MLS 2,000 UNIT/1,000 ML BAG IV ONE (13:56)
[2018-10-12] MEDS ORDERED: NA CHLORIDE 0.9% 500 ML ONE (14:22)
[2018-10-12] MEDS ORDERED: HEPARIN 5000 UNIT/ML 1 ML VIAL ONE (14:22)
[2018-10-12] MEDS ORDERED: FENTANYL CITR 100 MCG/2 ML ONE (14:23)
[2018-10-12] MEDS ORDERED: NITROGLYCERIN 100 MCG/ML SYR (for cath lab use only) IV ONE (14:23)
[2018-10-12] MEDS ORDERED: ATROPINE SULF 1 MG/10 ML SYR IV ONE (14:23)
[2018-10-12] MEDS ORDERED: MIDAZOLAM HCL 2 MG/2 ML INJ ONE ×2 (14:23→15:01)
[2018-10-12] MEDS ORDERED: NA CHLORIDE 0.9% 50 ML ONE (14:23)
[2018-10-12] MEDS ORDERED: NICARDIPINE HCL 25 MG/10 ML IV ONE (14:23)
--- NOTE | 2018-10-12 16:16 | PN ---
Date of Progress Note: 10/12/2018 Subjective: Patient is seen and examined. Chart reviewed and case discussed with RN and Dr. Palmer. at the bedside. Also spoke with patient's son on the phone in the patient's room on speake r. Explained in detail regarding the procedure risks versus benefits, possibility of transfer if req uired, however, understanding the fact that services including Cardiology and cardiac catheterization are available here. The patient for now does want to proceed with cardiac catheterization. Son was informed that she has not taken any of her medications there were ordered for her in the hospital. She has refused and has been more concerned about her bladder prolapse. She on multiple occasions st ated that she did not believe she has had a heart attack despite a clear objective evidence; however, for now she has watched a video. She understands risks versus benefits and wishes to proceed. Medications: List reviewed. Physical Examination: Vital Signs: Temperature 98.2, heart rate 58, blood pressure 132/67, respirations 16, O2 98% on room air. General: Awake, alert, oriented x3, in no acute distress, elderly female. CV: S1, S2. Peripheral pulses present. Respiratory: Moving air well bilaterally. No wheezing. Gastrointestinal: Abdomen is soft, nontender, nondistended. Positive bowel sounds. Extremities: No clubbing, cyanosis, or edema. Neurologic: Nonfocal. Laboratory Data: Labs are pending. Echocardiogram shows EF of 68%. Patient has apical hypokinesis and mild tricuspid regurgitation. Assessment And Plan: A 68-year-old female with: 1.Cin-IG-okonmnjx myocardial infarction. We will continue with chest pain guidelines. Patient was again counseled to take her medications. She has not taken any medications to date in the hospital. The patient has refused all source of treatments. Plan is for cardiac catheterization as the patien t now has given the go-ahead. 2.Uncontrolled hypertension, improved. We will continue with p.r.n. medications. 3.Right upper lobe lung nodule, 9 mm. Patient will need a repeat CT scan for surveillance and possi ble biopsy. Currently, due to her nym-EF-jqlqhzcn myocardial infarction, she will need to have her h eart evaluated and treated first. 4.Renal insufficiency secondary to uncontrolled hypertension. We will continue to monitor creatinin e. 5.Mixed hyperlipidemia. We will continue with statin. 6.Hypokalemia, replace and monitor. 7.Noncompliance, intentional. 8.Polycythemia, resolved. 9.History of hiatal hernia. 10.Bladder prolapse. She needs to follow up with specialist, has been referred out by Dr. Navarro. 11.Deep venous thrombosis prophylaxis with Lovenox. Plan, cardiac catheterization. /MODXenia Voice ID: [id number] Report ID: [id number]
[2018-10-12 18:05] VITALS: O2SAT 98
[2018-10-12] MEDS ORDERED: ATORVASTATIN 80 MG TAB PO SCH (21:00)
--- NOTE | 2018-10-13 01:47 | OP ---
Surgeon: Narendra Palmer MD Identification: 68-year-old woman. Procedures: Left heart catheterization, coronary left ventricular angiography, failed attempt at senior microstrategy developer ssing a totally occluded left anterior descending, failed percutaneous transluminal coronary angiopla sty attempt. Recommendation is that she undergo bypass surgery. Procedure Findings: The patient's right coronary is free of any significant disease. The left main and proximal LAD are free of any significant disease. The circumflex and obtuse marginals are free o f any significant disease. The LAD after first septal, trifurcates into a large diagonal, a medium-s ized LAD, and several other septals. The LAD is totally occluded over about a centimeter in length, fills by collaterals from both the obtuse marginal and the right coronary. An attempt was made to cr oss it with a wire, but the wire would not cross the lesion. Her left ventricular ejection fraction is normal. There is mild apical hypokinesis and left ventricular end-diastolic pressure is normal. No aortic valve gradient on pullback. Procedure In Detail: The patient was brought to the cardiac research laboratory specialist in a fasting state, sedated wit h Versed and fentanyl, prepared and draped in usual sterile fashion, she gave informed consent. Righ t radial artery was used to anesthetize the tissues around the right radial artery with 1% lidocaine, entered the artery with a 21-gauge needle, cannulated the artery with a 0.021 inch diameter guidewir e and placed a 6-[employer] Terumo radial sheath. We flushed the sheath and gave a radial cocktail consi sting of nicardipine, heparin, and nitroglycerin. We were able to guide a TIG catheter into the asce nding aorta using fluoroscopy and a short radius J-tip Glidewire. We were able to angiogram right an d left coronaries and left ventricle with this. We exchanged for an XBLAD 3.5 with side holes that g ave excellent support. We used a 2.5 x 12 balloon, but never inflated it. It was used only for guid e purposes and help in directing the wire to the LAD, but as the lesion was never crossed, there was no inflation. We attempted several different versions, different views. After 30 minutes, we decide d that it would be impossible to cross a wire or to cross the lesion with a wire or do any dilations, so we will send her to a surgeon for bypass surgery to the uma and LAD. Estimated Blood Loss: 15 cc. Complications: Unable to complete an attempted PTCA of a totally occluded LAD. Cabin Supervisor: Carmen LOPEZ/GENOVEVA Voice ID: [id number] Report ID: [id number]
[2018-10-13 03:57] VITALS: BP 132/62; TEMP 98.2
--- NOTE | 2018-10-13 14:35 | DS ---
Date of Discharge: 10/13/2018 Consultants: Dr. Palmer, Cardiology. Procedure: Cardiac catheterization on 10/12/2018. Admitting Diagnoses: 1.Krd-ON-dbtpvzxxt myocardial infarction. 2.Uncontrolled hypertension. 3.Right upper lobe lung nodule, 9 mm. 4.Renal insufficiency. 5.Mixed hyperlipidemia. 6.Hypokalemia. 7.Polycythemia. 8.History of hiatal hernia. Discharge Diagnoses: 1.Oqq-QK-gfatejjbu myocardial infarction, status post cardiac catheterization. Patient requires cor onary artery bypass graft. 2.Uncontrolled hypertension, improved with medications. 3.Right upper lobe lung nodule, 9 mm. Patient will need repeat CT scan for surveillance, too small for biopsy at this time. 4.Renal insufficiency secondary to uncontrolled hypertension. 5.Mixed hyperlipidemia, stable. 6.Hypokalemia, replace. 7.Noncompliance, intentional. 8.Polycythemia. 9.History of hiatal hernia. 10.History of bladder prolapse. Hospital Course: Patient is a 68-year-old female with past medical history of hypertension, bladder prolapse, hyperlipidemia, who is not very compliant, has been to the hospital several years ago, 2014 and 2016, was offered cardiac catheterization at that point, however, continue to refuse. Patient c omes in again with symptoms of arm tightness, weakness along with chest tightness, found to have NSTE NE. Patient was started on chest pain guidelines. However, patient refused all of her medications i nitially. Patient was counseled extensively. was at the bedside. Also, spoke with the son. Patient initially did not believe that she had a heart attack. I explained to her that females may not have the typical symptoms of left-sided chest pain radiating to their left arm. She was still n ot convinced. She was more concerned about her bladder prolapse. She has seen Dr. Navarro with Urolog [facility] for this and he has referred her to a specialist in [place]. I explained to her that her bladder p rolapse will need to be addressed as an outpatient. Currently, she has an NSTEMI, which precludes padilla rgery for the bladder prolapse at this time. Patient was also very much concerned and did not believ e. Her other comorbid conditions, her kidneys have been affected by her uncontrolled blood pressure. She was also seen by the health care liaison and was finally able to be convinced for heart catheterizatio n. We had a long discussion with her regarding the risks and benefits in the presence of her and charge nurse, Susi. She also watched the video for heart catheterization for information. Th e family agreed to the procedure and was catheterized. Dr. Palmer recommended coronary artery bypass graft and recommended transfer to [place]. Patient will be transferred to [place] once accepted. H er electrolytes were corrected. She does have an incidental finding of a lung nodule, which is very small for biopsy. However, patient will need to have repeat CT scan done and possible biopsy in the future. Repeat CT scan should be done within 3 months to ensure resolution or to monitor for increas e in size. Total time spent discharging the patient was 31 minutes. For physical exam findings, please see prog ress note dictated on the day of discharge. LETA Voice ID: [id number] Report ID: [id number]
== END 2018-10-13 01:10 | disposition short-term general hospital (02) | DRG 282 ==
LOC: ER 02:07 → OBSVTOIN 06:08 → ERHOLD 06:08 → 4TH 07:21
PROVIDERS: ADMIT Family Medicine; ATTEND Family Medicine
PROC: 4A023N7 Measurement of Cardiac Sampling and Pressure, Left Heart, Percutaneous Approach (ICD-10-PCS; principal; 2018-10-12)
PROC: B2111ZZ Fluoroscopy of Multiple Coronary Arteries using Low Osmolar Contrast (ICD-10-PCS; 2018-10-12)
PROC: B2151ZZ Fluoroscopy of Left Heart using Low Osmolar Contrast (ICD-10-PCS; 2018-10-12)
DX: I21.4 Non-ST elevation (NSTEMI) myocardial infarction (principal); I25.119 Atherosclerotic heart disease of native coronary artery with unspecified angina pectoris; Z91.19 Patient's noncompliance with other medical treatment and regimen; I10 Essential (primary) hypertension; R91.1 Solitary pulmonary nodule; N28.9 Disorder of kidney and ureter, unspecified; E78.2 Mixed hyperlipidemia; E87.6 Hypokalemia; D75.1 Secondary polycythemia; N81.10 Cystocele, unspecified; N18.2 Chronic kidney disease, stage 2 (mild)
CPT/HCPCS: 36415; 71045; 71275; 74175; 80048; 80061; 80076; 83690; 83880; 84484; 85025; 93005; 93306; 93458; 94760; 96374; 99285; C1877; C1893; J0360; J0583; J1644; J1650; J2250; J3010; Q9967

== ENCOUNTER 2018-12-31 13:28 | Emergency (ER) | payer OTHER ==
[2018-12-31 14:39] LABS: Absolute Lymphocytes (CBC) 1.4 K/uL (0.7-4.9); Basophils % 0.9 % (0-1.3); Hematocrit 37.9 % (36.0-45.0); Lymphocytes % 21.5 % (15.3-44.8); MPV 7.7 fL (7.6-11.3); RBC Red Blood Cell Count 4.12 M/uL (3.86-4.86)
[2018-12-31 14:43] LABS: Protime INR 1.16
[2018-12-31 15:05] LABS: Albumin 3.7 g/dL (3.4-5.0); Bilirubin Total 0.2 mg/dL (0.2-1.0); Potassium 3.7 mmol/L (3.5-5.1); Protein, Total 7.9 g/dL (6.4-8.2)
--- NOTE | 2018-12-31 15:46 | ER ---
Nurse's Notes [facility] Name: Araceli Celis Age: 68 yrs Sex: Female : 1950 Arrival Date: 12/31/2018 Time: 13:31 Bed 23 Private MD: Sree Ewdards E Diagnosis: Abnormal uterine and vaginal bleeding, unspecified Presentation: 12/31 13:36 Presenting complaint: Patient states: "I had a bladder lift and it came undone so I've aa5 been having vaginal bleeding for about a month". Pt states "I feel weak and I do have an appointment with Dr. Aguilar". Pt reports she is taking Xarelto. Transition of care: patient was not received from another setting of care. Onset of symptoms was November 2018. Risk Assessment: Do you want to hurt yourself or someone else? Patient reports no desire to harm self or others. Initial Sepsis Screen: Does the patient meet any 2 criteria? No. Patient's initial sepsis screen is negative. Does the patient have a suspected source of infection? No. Patient's initial sepsis screen is negative. Care prior to arrival: None. 13:36 Acuity: CASTRO 3 aa5 13:36 Method Of Arrival: Ambulatory aa5 Historical: - Allergies: 13:36 loratadine; aa5 13:36 TETRACYCLINES; aa5 - PMHx: 13:36 Bladder problem; hiatal hernia; Hypertension; aa5 - PSHx: 13:36 bladder lift; aa5 13:38 Heart Bypass; aa5 - Immunization history:: Flu vaccine is not up to date. - Social history:: Smoking status: Patient/guardian denies using tobacco. - Ebola Screening: : No symptoms or risks identified at this time. Screenin:36 Abuse screen: Denies threats or abuse. Nutritional screening: No deficits noted. tr5 Tuberculosis screening: No symptoms or risk factors identified. Fall Risk None identified. Assessment: 14:36 General: Appears comfortable, Behavior is calm, cooperative, appropriate for age. Pain: tr5 Denies pain. Neuro: Level of Consciousness is awake, alert, obeys commands, Oriented to person, place, time, L[employer] are equal bilaterally Moves all extremities. Reports dizziness. Cardiovascular: Heart tones present Capillary refill < 3 seconds Pulses are all present. Edema is absent. Respiratory: Airway is patent Respiratory effort is even, unlabored, Respiratory pattern is regular, symmetrical. GI: No signs and/or symptoms were reported involving the gastrointestinal system. : Vaginal discharge is bloody, Reports vaginal bleeding that is. EENT: No signs and/or symptoms were reported regarding the EENT system. Derm: No signs and/or symptoms reported regarding the dermatologic system. Musculoskeletal: No signs and/or symptoms reported regarding the musculoskeletal system. Vital Signs: 13:39 BP 145 / 70; Pulse 61; Resp 16 S; Temp 98.7(TE); Pulse Ox 97% on R/A; Pain 0/10; aa5 ED Course: 13:31 Patient arrived in ED. mr 13:31 Sree Edwards MD is Private Physician. mr 13:35 Arm band placed on. aa5 13:37 Triage completed. aa5 13:48 Dave Landers NP is PHCP. pm1 13:48 Ajay Garcia MD is Attending Physician. pm1 14:12 Luis Alex RN is Primary Nurse. tr5 14:27 Initial lab(s) drawn, by me, sent to lab. Inserted saline lock: 22 gauge in right lt1 antecubital area, using aseptic technique. 14:36 Placed in gown. Bed in low position. Call light in reach. tr5 15:45 Martina Bey MD is Referral Physician. pm1 16:03 No provider procedures requiring assistance completed. IV discontinued. tr5 Administered Medications: No medications were administered Outcome: 15:45 Discharge ordered by MD. pm1 16:03 Discharged to home ambulatory. tr5 16:03 Condition: stable 16:03 Discharge instructions given to patient, Instructed on discharge instructions, follow up and referral plans. Demonstrated understanding of instructions, follow-up care. 16:06 Patient left the ED. tr5 Signatures: Adry Webster Anika Mcrae RN RN aa5 Dave Landers NP QUAHOGGER pm1 Fariha Grant lt1 Luis Alex RN RN tr5 Corrections: (The following items were deleted from the chart) 13:41 13:36 Presenting complaint: Patient states: "I had a bladder lift and it came undone so aa5 I've been having vaginal bleeding for about a month". Pt states "I feel weak and I do have an appointment with Dr. Aguilar" aa5
--- NOTE | 2018-12-31 15:47 | EDPHYS ---
Physician Documentation [facility] Name: Araceli Celis Age: 68 yrs Sex: Female : 1950 Arrival Date: 12/31/2018 Time: 13:31 Bed 23 Private MD: Sree Edwards E ED Physician Ajay Garcia HPI: 12/31 14:15 This 68 yrs old Female presents to ER via Ambulatory with complaints of pm1 Vaginal Bleeding. 14:15 The patient presents with vaginal bleeding that is spotting. Onset: The pm1 symptoms/episode began/occurred 3 month(s) ago. Modifying factors: The symptoms are alleviated by nothing, the symptoms are aggravated by xarelto. Associated signs and symptoms: Pertinent negatives: diarrhea, dysuria, fever, nausea, vaginal discharge, vomiting, abdominal pain. Severity of symptoms: in the emergency department the symptoms are unchanged. has appointment for evalution with Maida in 1 month. Patient with bladder sling that no longer effective in preventing prolapse. Patient with [place] 3 months ago and was discharged to home with xarelto. Patient's trash hauler Palmer aware of her symptoms of light vaginal spotting with xarelto and instructed her to continue medication due to heart history. Patient notes slight increase in spotting 1 hour after taking her dose at night. . Historical: - Allergies: 13:36 loratadine; aa5 13:36 TETRACYCLINES; aa5 - PMHx: 13:36 Bladder problem; hiatal hernia; Hypertension; aa5 - PSHx: 13:36 bladder lift; aa5 13:38 Heart Bypass; aa5 - Immunization history:: Flu vaccine is not up to date. - Social history:: Smoking status: Patient/guardian denies using tobacco. - Ebola Screening: : No symptoms or risks identified at this time. ROS: 14:15 Positive for vaginal bleeding, Negative for urinary symptoms, vaginal discharge. pm1 14:15 Constitutional: Negative for fever, chills, and weight loss, Neck: Negative for injury, pain, and swelling, Cardiovascular: Negative for chest pain, palpitations, and edema, Respiratory: Negative for shortness of breath, cough, wheezing, and pleuritic chest pain, Abdomen/GI: Negative for abdominal pain, nausea, vomiting, diarrhea, and constipation, Back: Negative for injury and pain, MS/Extremity: Negative for injury and deformity, Skin: Negative for injury, rash, and discoloration, Neuro: Negative for headache, weakness, numbness, tingling, and seizure. Exam: 14:15 Constitutional: This is a well developed, well nourished patient who is awake, alert, pm1 and in no acute distress. Head/Face: Normocephalic, atraumatic. Neck: Trachea midline, no thyromegaly or masses palpated, and no cervical lymphadenopathy. Supple, full range of motion without nuchal rigidity, or vertebral point tenderness. No Meningismus. Chest/axilla: Normal chest wall appearance and motion. Nontender with no deformity. No lesions are appreciated. Cardiovascular: Regular rate and rhythm with a normal S1 and S2. No gallops, murmurs, or rubs. Normal PMI, no JVD. No pulse deficits. Respiratory: Lungs have equal breath sounds bilaterally, clear to auscultation and percussion. No rales, rhonchi or wheezes noted. No increased work of breathing, no retractions or nasal flaring. Abdomen/GI: Soft, non-tender, with normal bowel sounds. No distension or tympany. No guarding or rebound. No evidence of tenderness throughout. Back: No spinal tenderness. No costovertebral tenderness. Full range of motion. Skin: Warm, dry with normal turgor. Normal color with no rashes, no lesions, and no evidence of cellulitis. MS/ Extremity: Pulses equal, no cyanosis. Neurovascular intact. Full, normal range of motion. 14:15 : Pelvic Exam: The exam is refused by the patient/guardian. The risks and consequences are understood by the patient. Vital Signs: 13:39 BP 145 / 70; Pulse 61; Resp 16 S; Temp 98.7(TE); Pulse Ox 97% on R/A; Pain 0/10; aa5 MDM: 13:48 Patient medically screened. pm1 15:44 Data reviewed: vital signs. Data interpreted: Pulse oximetry: on room air is 97 %. pm1 Interpretation: normal. Counseling: I had a detailed discussion with the patient and/or guardian regarding: the historical points, exam findings, and any diagnostic results supporting the discharge/admit diagnosis, lab results, the need for outpatient follow up, Gyne Surgery, to return to the emergency department if symptoms worsen or persist or if there are any questions or concerns that arise at home. 12/31 14:02 Order name: CBC with Diff; Complete Time: 15:11 pm1 12/31 14:02 Order name: CMP; Complete Time: 15:11 pm1 12/31 14:02 Order name: IV Saline Lock; Complete Time: 14:27 pm1 12/31 14:02 Order name: [id number]-INR; Complete Time: 15:11 pm1 Administered Medications: No medications were administered Disposition: 01/01 15:21 Co-signature as Attending Physician, Ajay Garcia MD. Disposition: 12/31/18 15:45 Discharged to Home. Impression: Abnormal uterine and vaginal bleeding, unspecified. - Condition is Stable. - Discharge Instructions: Abnormal Uterine Bleeding. - Medication Reconciliation Form, Thank You Letter, Antibiotic Education, Prescription Opioid Use form. - Follow up: Emergency Department; When: As needed; Reason: Worsening of condition. Follow up: Martina Bey MD; When: 2 - 3 days; Reason: Recheck today's complaints, Continuance of care, Re-evaluation by your physician. - Problem is new. - Symptoms have improved. Signatures: Dispatcher [employer] EDMS Anika Mcrae RN RN aa5 Dave Landers, EDEL GEL COATER pm1 Ajay Garcia MD MD Luis Alex RN RN tr5 Corrections: (The following items were deleted from the chart) 12/31 16:06 15:45 12/31/2018 15:45 Discharged to Home. Impression: Abnormal uterine and vaginal tr5 bleeding, unspecified. Condition is Stable. Forms are Medication Reconciliation Form, Thank You Letter, Antibiotic Education, Prescription Opioid Use. Follow up: Emergency Department; When: As needed; Reason: Worsening of condition. Follow up: Martina Bey; When: 2 - 3 days; Reason: Recheck today's complaints, Continuance of care, Re-evaluation by your physician. Problem is new. Symptoms have improved. pm1
[2018-12-31 16:16] VITALS: BP 145/70; TEMP 98.7; O2SAT 97
== END 2018-12-31 16:06 | disposition home or self-care (01) ==
LOC: ER 13:28
DX: N93.9 Abnormal uterine and vaginal bleeding, unspecified (principal); I10 Essential (primary) hypertension; Z95.1 Presence of aortocoronary bypass graft
CPT/HCPCS: 36415; 80053; 85025; 85610; 99283

== ENCOUNTER 2019-10-17 03:16 | Emergency (ER) | payer OTHER ==
--- OUTSIDE RECORDS SUMMARY | 2019-10-17 03:20 | XMS REPORT | Clinical Summary ---
:1950 Author Organization [facility] Address [address] [place] [address] Care Team Providers Name Role Phone Zenon Edwards MD Primary Care Provider Allergies Active Allergy Reactions Severity Noted Date Comments Cefepime Hives 10/14/2018 Fluticasone Nausea Only 10/13/2018 Loratadine (Bulk) Hives 10/13/2018 Tetracyclines Nausea And Vomiting 10/13/2018 Medications Medication Sig Dispensed Refills Start Date End Date Status amLODIPine (NORVASC) 5 Take 5 mg by 0 Active MG tablet mouth daily. amiodarone (PACERONE) Take 1 60 tablet 1 10/23/2018 0 Active 200 MG tablet tablet (200 20 mg total) by mouth 2 (two) times daily. aspirin 81 MG EC tablet Take 1 0 10/24/201810/23 Active tablet (81 20 mg total) by mouth daily. atorvastatin (LIPITOR) Take 1 30 tablet 1 10/23/2018 Active 40 MG tablet tablet (40 20 mg total) by mouth nightly. carvedilol (COREG) 12.5 Take 1 60 tablet 1 10/23/201810/22 Active MG tablet tablet (12.5 20 mg total) by mouth 2 (two) times daily. magnesium oxide (MAG-OX) Take 1 30 tablet 1 10/24/201812/04 Active 400 mg (241.3 mg tablet (400 20 magnesium) tablet mg total) by mouth daily. rivaroxaban (XARELTO) 20 Take 1 30 tablet 1 10/23/2018 Active mg Tab tablet tablet (20 mg total) by mouth daily with dinner. hydroCHLOROthiazide Take 12.5 mg 0 0 Discontinued (HYDRODIURIL) 12.5 MG by mouth 19 tablet daily. acetaminophen-codeine Take 1 30 tablet 0 10/23/2018 0 (TYLENOL #3) 300-30 mg tablet by 19 per tablet mouth every 4 (four) hours as needed for up to 10 days. Max Daily Amount: 6 tablets Active Problems Problem Noted Date Acute post-operative pain 10/15/2018 Fluid overload 10/15/2018 S/P CABG x 2 10/14/2018 Acute respiratory insufficiency 10/14/2018 Hypertensive urgency 10/14/2018 Acute blood loss anemia 10/14/2018 SIRS (systemic inflammatory response syndrome) 019 Hyperglycemia 10/14/2018 CAD s/p ACB x2 (10/14, Nnamdi) 10/13/2018 Encounters Date Type Specialty Care Team Description 11/05/2018 Office Visit Cardiology Lior Coto Postoperati ve state MD Haroldo (Primary Dx) 10/13/2018 - Hospital Encounter Cardiology Ramu Hill Coronary artery disease involving [place] coronary artery, angina presence unspecified, unspecified whether [place] or transplanted heart (Primary Dx); 10/23/2018 MD Trav Acute blood loss anemia; Lior Coto Acute respi ratory insufficiency; MD Haroldo Hypertensive urgency; Nathan Wild MD S/P CABG x 2 ; SIRS (systemic inflammatory response syndrome) (HCC); Acute post-oper ative pain; Hypervolemia, u nspecified hypervolemia type after 10/16/2018 Social History Tobacco Use Types Packs/Day Years Used Date Never Smoker Smokeless Tobacco: Never Used Sex Assigned at Date Recorded Not on file Job Start Date Occupation Industry Not on file Not on file Not on file Travel History Travel Start Travel End No recent travel history available. Last Filed Vital Signs Vital Sign Reading Time Taken Blood Pressure 150/67 11/05/2018 9:30 AM CDT Pulse 63 11/05/2018 9:30 AM CDT Temperature 36.4 C (97.6 F) 11/05/2018 9:30 AM CDT Respiratory Rate 18 11/05/2018 9:30 AM CDT Oxygen Saturation 98% 11/05/2018 9:30 AM CDT Inhaled Oxygen Concentration - - Weight 63 kg (139 lb) 11/05/2018 9:30 AM CDT Height 160 cm (5' 3") 11/05/2018 9:30 AM CDT Body Mass Index 24.62 11/05/2018 9:30 AM CDT Plan of Treatment Health Maintenance Due Date Last Done Comments BREAST CANCER SCREENING 1950 COLON CANCER SCREENING COLONOSCOPY 1950 PNEUMOCOCCAL 65+ LOW/MEDIUM RISK (1 of 2 - PCV13) 2013 MEDICARE ANNUAL WELLNESS (YEAR 2 or FIRST YEAR if no 03/18/2019 IPPE) INFLUENZA VACCINE (#1) 2019 Procedures Procedure Name Priority Date/Time Associated Comments Diagnosis RHYTHM STRIP - SCAN 10/28/2018 12:41 PM CDT RHYTHM STRIP - SCAN 10/26/2018 12:24 PM CDT VASCULAR DIAGRAM 10/26/2018 12:23 -SCAN PM CDT VASCULAR DIAGRAM 10/26/2018 12:23 -SCAN PM CDT TRANSFUSE Routine 10/23/2018 6:52 LEUKO-REDUCED PM CDT PLATELETS HEMOGLOBIN AND Routine 10/23/2018 11:59 Results f or this HEMATOCRIT AM CDT procedure are i n the results section. CBC W/PLT COUNT & Routine 10/23/2018 4:46 Result s for this AUTO DIFFERENTIAL AM CDT procedure are in the results section. CBC W/PLT COUNT & Routine 10/23/2018 4:46 Result s for this AUTO DIFFERENTIAL AM CDT procedure are in the results section. MAGNESIUM Routine 10/23/2018 4:44 Results for this AM CDT procedure are i n the results section. BASIC METABOLIC PANEL Routine 10/23/2018 4:44 Re sults for this (7) AM CDT procedure are i n the results section. VASCULAR DIAGRAM 10/22/2018 2:50 -SCAN PM CDT CBC W/PLT COUNT & Routine 10/22/2018 4:09 Result s for this AUTO DIFFERENTIAL AM CDT procedure are in the results section. MAGNESIUM Routine 10/22/2018 4:09 Results for this AM CDT procedure are i n the results section. BASIC METABOLIC PANEL Routine 10/22/2018 4:09 Re sults for this (7) AM CDT procedure are i n the results section. CBC W/PLT COUNT & Routine 10/22/2018 4:09 Result s for this AUTO DIFFERENTIAL AM CDT procedure are in the results section. ECG 12-LEAD Routine 10/21/2018 9:50 PM CDT Procedure Note - Interface, External Ris In - 10/21/2018 10:01 PM CDT Ventricular Rate 57 BPM Atrial Rate 57 BPM P-R Interval 162 ms QRS Duration 74 ms Q-T Interval 464 ms QTC Calculation(Bazett) 451 ms P Sedgwick 53 degrees R Sedgwick 16 degrees T Sedgwick 154 degrees Sinus bradycardia Minimal voltage criteria for LVH, may be normal variant T wave abnormality, consider inferior ischemia T wave abnormality, consider anterior ischemia Abnormal ECG When compared with ECG of 06:41, Non-specific change in ST se gment in Inferior leads Inverted T waves have replac ed nonspecific T wave abnormality in Anterior leads QT has shortened ECG 12-LEAD Routine 10/21/2018 9:50 PM CDT Resu lts for this procedure are i n the results section . CBC W/PLT COUNT & AUTO Routine 10/21/2018 4:11 AM CDT Results for this DIFFERENTIAL procedure are i n the results section . MAGNESIUM Routine 10/21/2018 4:11 AM CDT Resu lts for this procedure are i n the results section . BASIC METABOLIC PANEL (7) Routine 10/21/2018 4:11 AM CDT Results for this procedure are i n the results section . CBC W/PLT COUNT & AUTO Routine 10/21/2018 4:11 AM CDT Results for this DIFFERENTIAL procedure are i n the results section . CBC W/PLT COUNT & AUTO Routine 10/20/2018 4:13 AM CDT Results for this DIFFERENTIAL procedure are i n the results section . MAGNESIUM Routine 10/20/2018 4:13 AM CDT Resu lts for this procedure are i n the results section . BASIC METABOLIC PANEL (7) Routine 10/20/2018 4:13 AM CDT Results for this procedure are i n the results section . CBC W/PLT COUNT & AUTO Routine 10/20/2018 4:13 AM CDT Results for this DIFFERENTIAL procedure are i n the results section . ECHOCARDIOGRAM REPORT - SCAN 10/19/2018 9:31 PM CDT MAGNESIUM Routine 10/19/2018 4:34 AM CDT Resu lts for this procedure are i n the results section . CBC (HEMOGRAM ONLY) Routine 10/19/2018 4:34 AM CDT Results for this procedure are i n the results section . BASIC METABOLIC PANEL (7) Routine 10/19/2018 4:34 AM CDT Results for this procedure are i n the results section . LIMITED 2D ECHOCARDIOGRAM Routine 10/18/2018 9:42 PM CDT Results for this procedure are i n the results section . MAGNESIUM Routine 10/18/2018 5:13 AM CDT Resu lts for this procedure are i n the results section . CBC (HEMOGRAM ONLY) Routine 10/18/2018 5:13 AM CDT Results for this procedure are i n the results section . BASIC METABOLIC PANEL (7) Routine 10/18/2018 5:13 AM CDT Results for this procedure are i n the results section . MAGNESIUM Routine 10/17/2018 4:38 AM CDT Resu lts for this procedure are i n the results section . CBC (HEMOGRAM ONLY) Routine 10/17/2018 4:38 AM CDT Results for this procedure are i n the results section . BASIC METABOLIC PANEL (7) Routine 10/17/2018 4:38 AM CDT Results for this procedure are i n the results section . TRANSFUSION SERVICE REPORT - 10/16/2018 6:00 PM CDT SCAN XR CHEST 1 VIEW Routine 10/16/2018 9:37 AM CDT R esults for this PORTABLE/BEDSIDE procedure a re in the results section . CBC (HEMOGRAM ONLY) Routine 10/16/2018 4:17 AM CDT Results for this procedure are i n the results section . BASIC METABOLIC PANEL (7) Routine 10/16/2018 4:16 AM CDT Results for this procedure are i n the results section . MAGNESIUM Routine 10/16/2018 4:16 AM CDT Resu lts for this procedure are i n the results section . after 10/16/2018 Results RHYTHM STRIP - SCAN (10/28/2018 12:41 PM CDT)Only the most recent of2 results within the time period is included. Narrative Performed At This result has an attachment that is no t available. VASCULAR DIAGRAM -SCAN (10/26/2018 12:23 PM CDT)Only the most recent of3 results within the time period is included. Narrative Performed At This result has an attachment that is no t available. Transfuse Leuko-Red PLT (10/23/2018 6:52 PM CDT)Hemoglobin and hematocrit (10/23/2018 11:59 AM CDT) Hemoglobin 8.4 (L) 11.2 - 15.7 GM/DL [facility] Hematocrit 26.0 (L) 34.1 - 44.9 % [facility] Specimen Blood Performing Organization Address City/State/Zipcode Phone Number [facility] [address] [place] [address] CENTER CBC with platelet count + automated diff (10/23/2018 4:46 AM CDT)Only the most recent of4 resultswithin the time period is included. WBC 8.4 3.5 - 10.5 K/L [facility] RBC 2.68 (L) 3.93 - 5.22 M/L [facility] Hemoglobin 8.2 (L) 11.2 - 15.7 GM/DL [facility] Hematocrit 25.7 (L) 34.1 - 44.9 % [facility] MCV 95.9 (H) 79.4 - 94.8 fL [facility] MCH 30.6 25.6 - 32.2 pg [facility] MCHC 31.9 (L) 32.2 - 35.5 GM/DL [facility] RDW 15.3 (H) 11.7 - 14.4 % [facility] Platelets 341 150 - 450 K/CU MM [facility] MPV 9.2 (L) 9.4 - 12.3 fL [facility] nRBC 0 0 - 0 /100 WBC [facility] % Neutros 63 % [facility] % Lymphs 24 % [facility] % Monos 8 % [facility] % Eos 4 % [facility] % Baso 0 % [facility] # Neutros 5.30 1.56 - 6.13 K/L [facility] # Lymphs 1.97 1.18 - 3.74 K/L [facility] # Monos 0.70 (H) 0.24 - 0.36 K/L [facility] # Eos 0.31 0.04 - 0.36 K/L [facility] # Baso 0.03 0.01 - 0.08 K/L [facility] Immature Granulocytes-Relative 1 0 - 1 % C [facility] Specimen Blood Performing Organization Address City/[facility]/Zipcode Phone Number [address] [address] CENTER Magnesium (10/23/2018 4:44 AM CDT)Only the most recent of8 resultswithin the time period is included. Magnesium 2.3 1.6 - 2.6 mg/dL [facility] Specimen Blood Performing Organization Address City/[facility]/Zipcode Phone Number [address] [address] [place] Basic Metabolic Panel (10/23/2018 4:44 AM CDT)Only the most recent of8 results within the time period is included. Sodium 140 136 - 145 meq/L [facility] Potassium 4.2 3.5 - 5.1 meq/L [facility] Chloride 109 (H) 98 - 107 meq/L [facility] CO2 25 22 - 29 meq/L [facility] BUN 16 7 - 21 mg/dL [facility] Creatinine 0.81 0.57 - 1.25 mg/dL [facility] Glucose 96 70 - 105 mg/dL [facility] Calcium 9.3 8.4 - 10.2 mg/dL [facility] EGFR 70Comment: ESTIMATED GFR IS mL/min/1.73 sq m [facility] NOT ACCURATE CREATININE [facility] CLEARANCE IN PREDICTING GLOMERULAR FILTRATION RATE. ESTIMATED GFR IS NOT APPLICABLE FOR DIALYSIS PATIENTS. Specimen Blood Performing Organization Address City/State/Zipcode Phone Number [facility] [address] [place] [address] CENTER ECG 12 lead (10/21/2018 9:50 PM CDT) Specimen Narrative Performed At Ventricular Rate 57 BPM [place] Atrial Rate 57 BPM P-R Interval 162 ms QRS Duration 74 ms Q-T Interval 464 ms QTC Calculation(Bazett) 451 ms P Sedgwick 53 degrees R Sedgwick 16 degrees T Sedgwick 154 degrees Sinus bradycardia Nonspecific ST and T wave abnormality Prolonged QT Abnormal ECG When compared with ECG of 13-OCT-2018 06 :41, No significant change was found Confirmed by MD YANEZ JORGE ([id number]) on 10/22/2018 1:26 :30 PM Procedure Note Interface, External Ris In - 10/22/2018 1:26 PM CDT Ventricular Rate 57 BPM Atrial Rate 57 BPM P-R Interval 162 ms QRS Duration 74 ms Q-T Interval 464 ms QTC Calculation(Bazett) 451 ms P Sedgwick 53 degrees R Sedgwick 16 degrees T [place]gwick 154 degrees Sinus bradycardia Nonspecific ST and T wave abnormality Prolonged QT Abnormal ECG When compared with ECG of 13-OCT-2018 06 :41, No significant change was found Confirmed by MD YANEZ JORGE ([id number]) on 10/22/2018 1:26:30 PM Performing Organization Address City/[facility] Phone Number [place] ECHOCARDIOGRAM REPORT - SCAN (10/19/2018 9:31 PM CDT) Narrative Performed At This result has an attachment that is no t available. CBC (Hemogram only) (10/19/2018 4:34 AM CDT)Only the most recent of4 results within the time period is included. WBC 7.6 3.5 - 10.5 K/L [facility] RBC 2.75 (L) 3.93 - 5.22 M/L [facility] Hemoglobin 8.2 (L) 11.2 - 15.7 GM/DL [facility] Hematocrit 25.6 (L) 34.1 - 44.9 % [facility] MCV 93.1 79.4 - 94.8 fL [facility] MCH 29.8 25.6 - 32.2 pg [facility] MCHC 32.0 (L) 32.2 - 35.5 GM/DL [facility] RDW 13.6 11.7 - 14.4 % [facility] Platelets 301 150 - 450 K/CU MM [facility] MPV 9.7 9.4 - 12.3 fL [facility] nRBC 0 0 - 0 /100 WBC [facility] Specimen Blood Performing Organization Address City/State/Zipcode Phone Number [facility] [address] [place] [address] CENTER Limited 2D Echocardiogram (10/18/2018 9:42 PM CDT) Ejection Fraction [facility] ECHO HEAR TLAB [facility] Specimen Narrative Performed At Transthoracic Echocardiography Report (T TE) [facility] ECHO HEARTLAB [facility] Demographics Patient NameHERNANDEZ, ELIDADate of Study10/18/2018 SARA Female Visit [id number] Unknown Room [id number] Number Date of 1950Referring Jevon Moran Physician Age 68 year(s)[employer] Shanell Crabtree RDCS, RVT Interpreting Kenny Lan MD Physician Procedure Type of Study TTE procedure:LIMITED 2D ECHOCARDIOGRAM (Routine) Indications:Suspected Pericardial condit ions. Clinical History ACBX2 10/13/18, HTN HGB 8.7 HCT 26.6 % Height: 63 inches Weight: 64.86 kg (143 lbs) BSA: 1.68 m^2 BMI: 25.33 kg/m^2 HR: 83 bpm BP: 148/72 mmHg Summary The left ventricle is chamber size (by PSLAX dimension) is normal (female - LVIDd 3.8-5.2cm) . Normal LV wall thickness. Septal motion is abnormal, likely related to prior cardiac surgery . The other segments contract normally. Estimated LVEF by qualitative assessment is normal (>60%) . Mild tricuspid regurgitation. Estimated peak systolic PA pressure is 40-45 mmHg . No pericardial effusion is visualized. Signature Findings Left Ventricle The left ventricle is chamber size (by PSLAX di mension) is normal (female - LVIDd 3.8-5 .2cm) . No rmal LV wall thickness. Se ptal motion is abnormal, likely related to prior ca rdiac surgery . Th e other segments contract normally. Es timated LVEF by qualitative assessment i s normal (> 60%) . Left AtriumLA size is normal (16-34 ml/m2) . Right VentricleThe right ventricular chamber size and systolic fu nction are within normal limits. Right Atrium RA size is normal. Aortic Valve Normal AoV structure. Mitral Valve Normal MV structure. Tricuspid ValveTV structure is normal. Mi ld tricuspid regurgitation. Es timated peak systolic PA pressure is 40- 45 mmHg . Pulmonic Valve PV is not well visualized. AortaAortic root size (SInus of Valsalva diameter) i s no rmal . PericardiumNo pericardial effusion is visualized. IVC/SVC/PA/PV/PleuralThe estimated RA pressure by IVC dynamics 5-10mmHg . Chambers/Structures Left Atrium LA Dimension: 3.26 cmLA Area: 20.11 cm^2 LA Volume: 53.69 ml LA Vol. Index: 32 ml/m^2 Left Ventricle LVIDd: 4.02 cm LVIDs: 2.7 cm LV Septum Diastolic: 1.14 cm LV PW Diastolic: 0.96 cm LV FS: 32.8 % LVOT Diameter: 1.96 cm Aorta Ao Root S of Stacie.: 3.32 cm Doppler/Quantitative Measurements LVOT LVOT Diameter: 1.96 cm LVOT Area: 3.02 cm^2 Procedure Note Interface, External Ris In - 10/19/2018 8:26 AM CDT Transthoracic Echocardiography Report (TTE) Demographics Patient Name AALIYAH CELIS Date of Study 10/18/2018 SARA Gender Female Visit Number [id number] Race Unknown Room [place] [id number] Number Date of 1950 Referri nestor edward Age 68 year(s) Sonogra danny Shanell Bro RDCS, RVT Interpr eting MD Bienvenido Lugo Procedure Type of Study TTE procedure:LIMITED 2D ECHO CARDIOGRAM (Routine) Indications:Suspected Pericardial condit ions. Clinical History ACBX2 10/13/18, HTN HGB 8.7 HCT 26.6 % Height: 63 inches Weight: 64.86 kg (143 lbs) BSA: 1.68 m^2 BMI: 25.33 kg/m^2 HR: 83 bpm BP: 148/72 mmHg Summary The left ventricle is chamber size (by PSLAX dimension) is normal (female - LVIDd 3.8-5.2cm) . Normal LV wall thi ckness. Septal motion is abnormal, likely related to prior cardiac surgery . The other segments contract normally. Estimated LVEF by qualitative assessment is normal (>60%) . Mild tricuspid regurgitation. Estimated peak systolic PA pressure is 40-45 mmHg . No pericardial effusion is visualized. Signature Findings Left Ventricle The left ventric le is chamber size (by PSLAX dimension) is no rmal (female - LVIDd 3.8-5.2cm) . Normal LV wall t hickness. Septal motion is abnormal, likely related to prior cardiac surgery . The other segmen ts contract normally. Estimated LVEF b y qualitative assessment is normal (>60%) . Left Atrium LA size is savita l (16-34 ml/m2) . Right Ventricle The right ventri cular chamber size and systolic function are wit hin normal limits. Right Atrium RA size is savita l. Aortic Valve Normal AoV struc ture. Mitral Valve Normal MV struct ure. Tricuspid Valve TV structure is normal. Mild tricuspid r egurgitation. Estimated peak s ystolic PA pressure is 40-45 mmHg . Pulmonic Valve PV is not well v isualized. Aorta Aortic root size (SInus of Valsalva diameter) is normal . Pericardium No pericardial e ffusion is visualized. IVC/SVC/PA/PV/Pleural The estimated RA pressure by IVC dynamics 5-10mmHg . Chambers/Structures Left Atrium LA Dimension: 3.26 cm LA Area: 20.11 cm^2 LA Volume: 53.69 ml LA Vol. Index: 32 ml/m^2 Left Ventricle LVIDd: 4.02 cm LVIDs: 2.7 cm LV Septum Diastolic: 1.14 cm LV PW Diastolic: 0.96 cm LV FS: 32.8 % LVOT Diameter: 1.96 cm Aorta Ao Root S of Stacie.: 3.32 cm Doppler/Quantitative Measurements LVOT LVOT Diameter: 1.96 cm LVOT Area: 3.02 cm^2 Performing Organization Address City/State/Zipcode Phone Number [facility] ECHO HEARTLAB [facility] TRANSFUSION SERVICE REPORT - SCAN (10/16/2018 6:00 PM CDT) Narrative Performed At This result has an attachment that is no t available. XR chest 1 view portable / bedside (10/16/2018 9:37 AM CDT) Specimen Narrative Performed At FINAL REPORT [facility] RAD, CHEST, 1 VIEW, NON DEPT INDICATION: Status post CV Surgery COMPARISON: Prior day's exam FINDINGS: Portable frontal view of the c hest. IMPRESSION: Support Lines: Drainage catheters and ri ght IJ central venous catheter have been removed. Lungs and pleura: Right lung is clear. B asilar left subsegmental atelectasis. No pneumothorax. Heart and mediastinum: Stable contours. Stable surgical changes. Additional findings: None. Signed: JR Gonzalez Robert MD Report Verified Date/Time:10/16/2018 09:55:54 Reading Location: [facility] Reading Room Procedure Note Interface, External Ris In - 10/16/2018 10:36 AM CDT FINAL REPORT RAD, CHEST, 1 VIEW, NON DEPT INDICATION: Status post CV Surgery COMPARISON: Prior day's exam FINDINGS: Portable frontal view of the c hest. IMPRESSION: Support Lines: Drainage catheters and ri ght IJ central venous catheter have been removed. Lungs and pleura: Right lung is clear. B asilar left subsegmental atelectasis. No pneumothorax. Heart and mediastinum: Stable contours. Stable surgical changes. Additional findings: None. Signed: JR Gonzalez Robert MD Report Verified Date/Time: 10/16/2018 0 9:55:54 Reading Location: [facility] y Reading Room Performing Organization Address City/State/Zipcode Phone Number GE RIS after 10/16/2018 Insurance Payer Benefit Plan / Group Subscriber ID Type Phone A ddress [employer] ALL xxxxxxxxx Maps Contracted Advance Directives For more information, please contact:[address] [phone] Code Status Date Activated Date Inactivated Comments Full Code 10/14/2018 10:50 AM 10/23/2018 4:52 PM This code status was determined by: Patient Full Code 10/13/2018 2:43 AM 10/14/2018 10:50 AM This code status was determined by: Patient
--- NOTE | 2019-10-17 04:21 | EDPHYS ---
Physician Documentation [facility] Name: Araceli Celis Age: 69 yrs Sex: Female : 1950 Arrival Date: 10/17/2019 Time: 03:17 Bed 14 Private MD: ED Physician Emmanuel Hutchinson HPI: 10/16 06:24 This 69 yrs old Female presents to ER via Wheelchair with complaints of tw4 Vomiting. 06:24 The patient presents to the emergency department with nausea. Onset: The tw4 symptoms/episode began/occurred today. Possible causes: unknown. The symptoms are aggravated by nothing. The symptoms are alleviated by nothing. Associated signs and symptoms: The patient has no apparent associated signs or symptoms. Severity of symptoms: At their worst the symptoms were mild in the emergency department the symptoms are unchanged. The patient has not experienced similar symptoms in the past. Historical: - Allergies: 03:17 TETRACYCLINES; jb4 03:17 loratadine; jb4 - PMHx: 03:17 Bladder problem; hiatal hernia; Hypertension; jb4 - PSHx: 03:17 bladder lift; Heart Bypass; jb4 - Immunization history:: Adult Immunizations up to date. - Social history:: Smoking status: Patient denies any tobacco usage or history of. Patient/guardian denies using alcohol, street drugs. ROS: 06:24 Constitutional: Negative for fever, chills, and weight loss, Eyes: Negative for injury, tw4 pain, redness, and discharge, Neck: Negative for injury, pain, and swelling, Cardiovascular: Negative for chest pain, palpitations, and edema, Respiratory: Negative for shortness of breath, cough, wheezing, and pleuritic chest pain, Back: Negative for injury and pain, MS/Extremity: Negative for injury and deformity, Skin: Negative for injury, rash, and discoloration, Neuro: Negative for headache, weakness, numbness, tingling, and seizure. 06:24 Abdomen/GI: Positive for nausea, Negative for vomiting, diarrhea, constipation, abdominal cramps. Exam: 06:24 Constitutional: This is a well developed, well nourished patient who is awake, alert, tw4 and in no acute distress. Head/Face: Normocephalic, atraumatic. Chest/axilla: Normal chest wall appearance and motion. Nontender with no deformity. No lesions are appreciated. Cardiovascular: Regular rate and rhythm with a normal S1 and S2. No gallops, murmurs, or rubs. Normal PMI, no JVD. No pulse deficits. Respiratory: Lungs have equal breath sounds bilaterally, clear to auscultation and percussion. No rales, rhonchi or wheezes noted. No increased work of breathing, no retractions or nasal flaring. Back: No spinal tenderness. No costovertebral tenderness. Full range of motion. MS/ Extremity: Pulses equal, no cyanosis. Neurovascular intact. Full, normal range of motion. Neuro: Awake and alert, GCS 15, oriented to person, place, time, and situation. Cranial nerves II-XII grossly intact. Motor strength 5/5 in all extremities. Sensory grossly intact. Cerebellar exam normal. Normal gait. Vital Signs: 03:17 BP 182 / 103; Pulse 77; Resp 16; Temp 98.2(O); Pulse Ox 99% on R/A; Weight 68.04 kg jb4 (R); Height 5 ft. 3 in. (160.02 cm) (R); Pain 0/10; 04:15 BP 168 / 86; Pulse 77; Resp 16; Pulse Ox 97% on R/A; Pain 0/10; jb4 03:17 Body Mass Index 26.57 (68.04 kg, 160.02 cm) jb4 MDM: 03:22 Patient medically screened. tw4 06:24 Differential diagnosis: Nonspecific abd pain, gastritis, cholecystitis. Data reviewed: tw4 vital signs, nurses notes. Data interpreted: Pulse oximetry: Interpretation: normal. Counseling: I had a detailed discussion with the patient and/or guardian regarding: the historical points, exam findings, and any diagnostic results supporting the discharge/admit diagnosis. Special discussion: I discussed with the patient/guardian in detail that at this point there is no indication for admission to the hospital. It is understood, however, that if the symptoms persist or worsen the patient needs to return immediately for re-evaluation. Administered Medications: No medications were administered Disposition: 10/17/19 04:20 Discharged to Home. Impression: Nausea, hypertensive urgency. - Condition is Stable. - Medication Reconciliation Form, Thank You Letter, Antibiotic Education, Prescription Opioid Use form. - Follow up: Private Physician; When: Upon discharge from the Emergency Department; Reason: Recheck today's complaints, Continuance of care, Re-evaluation by your physician. - Problem is new. - Symptoms have improved. Signatures: Dispatcher [employer] Clark Willis RN RN jb4 Emmanuel Hutchinson MD MD tw4 Corrections: (The following items were deleted from the chart) 04: 03:22 IV Saline Lock ordered. 4 jb4 :31 03:22 Labs collected and sent ordered. 4 jb4 04:51 04:20 10/17/2019 04:20 Discharged to Home. Impression: Nausea; hypertensive urgency. jb4 Condition is Stable. Forms are Medication Reconciliation Form, Thank You Letter, Antibiotic Education, Prescription Opioid Use. Follow up: Private Physician; When: Upon discharge from the Emergency Department; Reason: Recheck today's complaints, Continuance of care, Re-evaluation by your physician. Problem is new. Symptoms have improved. tw4
--- NOTE | 2019-10-17 04:21 | ER ---
Nurse's Notes [facility] Name: Araceli Celis Age: 69 yrs Sex: Female : 1950 Arrival Date: 10/17/2019 Time: 03:17 Bed 14 Private MD: Diagnosis: Nausea;hypertensive urgency Presentation: 10/16 03:17 Chief complaint: Patient states: I was here earlier. They told me I took my dose of jb4 blood pressure medication for tonight while I was here. I took my scheduled carvedilol and now I am nauseous. 03:17 Coronavirus screen: Client denies travel out of the [place] in the last 14 days. At this jb4 time, the client does not indicate any symptoms associated with coronavirus-19. Ebola Screen: No symptoms or risks identified at this time. Initial Sepsis Screen: Does the patient meet any 2 criteria? No. Patient's initial sepsis screen is negative. Does the patient have a suspected source of infection? No. Patient's initial sepsis screen is negative. Risk Assessment: Do you want to hurt yourself or someone else? Patient reports no desire to harm self or others. Onset of symptoms was October 17, 2019. Transition of care: patient was not received from another setting of care. 03:17 Acuity: CASTRO 3 jb4 03:17 Method Of Arrival: Wheelchair jb4 Historical: - Allergies: 03:17 TETRACYCLINES; jb4 03:17 loratadine; jb4 - PMHx: 03:17 Bladder problem; hiatal hernia; Hypertension; jb4 - PSHx: 03:17 bladder lift; Heart Bypass; jb4 - Immunization history:: Adult Immunizations up to date. - Social history:: Smoking status: Patient denies any tobacco usage or history of. Patient/guardian denies using alcohol, street drugs. Screenin:17 Abuse screen: Denies threats or abuse. Nutritional screening: No deficits noted. jb4 Tuberculosis screening: No symptoms or risk factors identified. Fall Risk None identified. Assessment: 03:17 General: Appears in no apparent distress. uncomfortable, Behavior is calm, cooperative, jb4 appropriate for age. Pain: Denies pain. Neuro: Level of Consciousness is awake, alert, obeys commands, Oriented to person, place, time, situation. Cardiovascular: Patient's skin is warm and dry. Respiratory: Airway is patent Respiratory effort is even, unlabored, Respiratory pattern is regular, symmetrical. GI: Abdomen is non-distended, obese, Reports nausea. : No signs and/or symptoms were reported regarding the genitourinary system. EENT: No signs and/or symptoms were reported regarding the EENT system. Derm: Skin is intact, Skin is pink, warm \T\ dry. Musculoskeletal: Circulation, motion, and sensation intact. Range of motion: intact in all extremities. 03:40 Reassessment: Provider at the bedside explaining POC. jb4 04:00 Reassessment: Pt verbalizes confusion about D/c instructions from earlier visit and jb4 that she is worried she may have over dosed on blood pressure medication. Pt informed that she did what she was supposed to do. Informed that she need not take another dose of carvedilol this morning but needs to wait until her scheduled dose tonight. Pt informed that from this point on that she needs to be taking her medications as prescribed and not deviate simply because she wants to. Informed that if she needs to take her blood pressure prior to taking her medication for each dose and that if her pressure is low she should not take it, if it is high then she needs to take it. If she take her medication and her pressure drops and she begins to feel symptomatic, instructed to return to the ED, as well as if she take the medication and her pressure goes up and she begins to feel symptomatic. Informed to follow up with PCP if her medications are no longer working and pressure is not changing. Pt verbalizes understanding of instructions. 04:50 Reassessment: Pt verbalized understanding of prior instructions. Pt verbalized jb4 understanding for need to take her medications at the same time of day each day with a meal as prescribed by her PCP via teach back. Pt remains A\T\O x4 and is no longer verbalizing confusion about POC. PT verbalized understanding of D/c and follow up instructions. Denies further questions or concerns. Ambulated out of ED with steady gait. Vital Signs: 03:17 BP 182 / 103; Pulse 77; Resp 16; Temp 98.2(O); Pulse Ox 99% on R/A; Weight 68.04 kg jb4 (R); Height 5 ft. 3 in. (160.02 cm) (R); Pain 0/10; 04:15 BP 168 / 86; Pulse 77; Resp 16; Pulse Ox 97% on R/A; Pain 0/10; jb4 03:17 Body Mass Index 26.57 (68.04 kg, 160.02 cm) jb4 ED Course: 03:17 Patient arrived in ED. cl3 03:17 Arm band placed on right wrist. jb4 03:17 Patient has correct armband on for positive identification. Placed in gown. Bed in low jb4 position. Call light in reach. Side rails up X 1. Pulse ox on. NIBP on. 03:21 Emmanuel Hutchinson MD is Attending Physician. tw4 03:35 Clark Solorzano, RN is Primary Nurse. jb4 03:37 Triage completed. jb4 04:50 No provider procedures requiring assistance completed. Patient did not have IV access jb4 during this emergency room visit. Administered Medications: No medications were administered Outcome: 04:20 Discharge ordered by . tw4 04:50 Discharged to home ambulatory. jb4 04:50 Condition: stable 04:50 Discharge instructions given to patient, Instructed on discharge instructions, follow up and referral plans. medication usage, Demonstrated understanding of instructions, follow-up care, medications. 04:51 Patient left the ED. jb4 Signatures: Clark Solorzano, RN RN jb4 Emmanuel Hutchinson MD MD tw4 Masood Anderson cl3
[2019-10-17 04:55] VITALS: BP 182/103; TEMP 98.2; O2SAT 99
== END 2019-10-17 04:51 | disposition home or self-care (01) ==
LOC: ER 03:16
DX: I16.0 Hypertensive urgency (principal); I10 Essential (primary) hypertension; Z88.1 Allergy status to other antibiotic agents; Z88.8 Allergy status to other drugs, medicaments and biological substances
CPT/HCPCS: 99283

== ENCOUNTER 2020-05-10 13:45 | Emergency (ER) | payer OTHER ==
[2011-09-17 08:28] VITALS: BP 148/74
--- NOTE | 2020-05-10 16:29 | RAD REPORT ---
EXAM DESCRIPTION: RAD - Chest Single View - 05/10/2020 4:21 pm CLINICAL HISTORY: SOB Chest pain. COMPARISON: Chest Single View dated 10/10/2018; Chest Single View dated 12/04/2015; CHEST SINGLE VIEW dated 12/10/2014; CHEST SINGLE VIEW dated 11/30/2014 FINDINGS: Portable technique limits examination quality. The lungs are grossly clear. The heart is upper limit normal in size with sternotomy wires present. N o displaced fractures. IMPRESSION: No acute intrathoracic process suspected.
[2020-05-10 16:47] LABS: Absolute Lymphocytes (CBC) 0.4 K/uL (0.7-4.9); Basophils % 0.6 % (0-1.3); Hematocrit 44.9 % (36.0-45.0); Lymphocytes % 5.8 % (15.3-44.8); MPV 8.4 fL (7.6-11.3); Protime INR 1.08; RBC Red Blood Cell Count 4.89 M/uL (3.86-4.86)
[2020-05-10 17:07] LABS: ALT/SGPT 26 U/L (12-78); AST/SGOT 16 U/L (15-37); Alkaline Phosphatase 135 U/L (45-117); BUN Blood Urea Nitrogen 13 mg/dL (7-18); Bicarbonate 28 mmol/L (21-32); Bilirubin Direct < 0.1 mg/dL (0-0.2); Bilirubin Total 0.4 mg/dL (0.2-1.0); Glucose Level 132 mg/dL (74-106); Lipase 61 U/L (73-393); Magnesium 2.4 mg/dL (1.8-2.4); NT PRO-BNP 331 pg/mL (<125); Protein, Total 8.8 g/dL (6.4-8.2); Sodium Level 138 mmol/L (136-145); Troponin (Emerg Dept Use Only) < 0.02 ng/mL (0.0-0.045)
[2020-05-10 17:12] LABS: Urine Blood TRACE (NEG); Urine Glucose NEGATIVE (NEG); Urine Protein 1+ (NEG); Urine Specific Gravity 1.025 (1.005-1.030)
[2020-05-10 17:21] LABS: Blood Morphology Comment NOT SEEN (NOT SEEN); Platelet Estimate ADEQ
--- NOTE | 2020-05-10 18:04 | RAD REPORT ---
EXAM DESCRIPTION: US - Abdomen Exam Limited - 05/10/2020 5:59 pm CLINICAL HISTORY: ABD PAIN COMPARISON: ABDOMINAL EXAM COMPLETE dated 11/02/2014; Angio Aorta For Dissection dated 10/10/2018 FINDINGS: The gallbladder demonstrates no gallstones. No pericholecystic fluid or gallbladder wall t hickening. The common bile duct is normal measuring 4 mm. The liver demonstrates no findings of intrahepatic biliary dilatation. IMPRESSION: Unremarkable examination.
[2020-05-10 18:13] LABS: SARS-COV-2 RT PCR POSITIVE (NEGATIVE)
[2020-05-10] MEDS ORDERED: POTASSIUM CL SA 10 MEQ TAB PO ONE (18:41)
--- NOTE | 2020-05-10 18:47 | ER ---
Nurse's Notes [facility] Name: Araceli Celis Age: 69 yrs Sex: Female : 1950 Arrival Date: 05/10/2020 Time: 13:48 Bed 18 Private MD: Aldair Watson Diagnosis: Coronavirus infection, unspecified Presentation: 05/10 14:12 Chief complaint: Patient states: Since yesterday, have headache, N/V. feeling hot then ca1 cold sweats, very drowsy at this time. Had a negative test result for Covid Yesterday. Coronavirus screen: Client denies travel out of the [place] in the last 14 days. chills, fatigue, headache, nausea, vomiting. Client presents with at least one sign or symptom that may indicate coronavirus-19. Standard/surgical mask placed on the client. Provider contacted for isolation considerations. Ebola Screen: Patient negative for fever greater than or equal to 101.5 degrees Fahrenheit, and additional compatible Ebola Virus Disease symptoms Patient denies exposure to infectious person. Patient denies travel to an Ebola-affected area in the 21 days before illness onset. No symptoms or risks identified at this time. Initial Sepsis Screen: Does the patient meet any 2 criteria? No. Patient's initial sepsis screen is negative. Does the patient have a suspected source of infection? No. Patient's initial sepsis screen is negative. Risk Assessment: Do you want to hurt yourself or someone else? Patient reports no desire to harm self or others. Onset of symptoms was May 10, 2020. 14:12 Method Of Arrival: Wheelchair ca1 14:12 Acuity: CASTRO 3 ca1 Triage Assessment: 15:20 General: Appears in no apparent distress. uncomfortable, Behavior is cooperative, bp appropriate for age, anxious. Pain: Complains of pain in head. EENT: No deficits noted. Neuro: Reports weakness GENERALIZED. Cardiovascular: No deficits noted. Respiratory: Reports shortness of breath. GI: Reports nausea, vomiting. : No signs and/or symptoms were reported regarding the genitourinary system. Derm: No deficits noted. Musculoskeletal: No deficits noted. Historical: - Allergies: 14:17 loratadine; ca1 14:17 TETRACYCLINES; ca1 - PMHx: 14:17 Bladder problem; Hypertension; hiatal hernia; ca1 - PSHx: 14:17 bladder lift; Heart Bypass; ca1 - Immunization history:: Flu vaccine is not up to date. - Social history:: Smoking status: Patient denies any tobacco usage or history of. Screenin:20 Abuse screen: Denies threats or abuse. Denies injuries from another. Nutritional bp screening: No deficits noted. Tuberculosis screening: No symptoms or risk factors identified. Fall Risk None identified. Assessment: 15:20 General: SEE TRIAGE NOTE. bp 16:30 Reassessment: No changes from previously documented assessment. Patient and/or family bp updated on plan of care and expected duration. Pain level reassessed. GI: Abdomen is non-distended, NO VOMITING SINCE ARRIVAL. 17:24 Reassessment: No changes from previously documented assessment. Patient and/or family bp updated on plan of care and expected duration. Pain level reassessed. ALL CURRENT ORDERS COMPLETED. 19:10 Reassessment: No changes from previously documented assessment. Patient and/or family bp updated on plan of care and expected duration. Pain level reassessed. neeru mckeon to continue with D/C. 19:23 Reassessment: PT D/C HOME AMBULATORY, DX WITH CORONAVIRUS INFECTION. ll2 Vital Signs: 14:12 BP 178 / 87; Pulse 88; Resp 17 S; Temp 98.5(TE); Pulse Ox 97% on R/A; Weight 66.68 kg ca1 (R); Height 5 ft. 3 in. (160.02 cm) (R); Pain 5/10; 15:23 BP 187 / 93; Pulse 88; Resp 20; Temp 99.4; Pulse Ox 98% on R/A; mh5 16:30 BP 175 / 92; Pulse 98; Resp 17; Pulse Ox 98% ; bp 17:21 BP 173 / 91; Pulse 89; Resp 17; Pulse Ox 95% ; bp 19:20 BP 164 / 82; Pulse 80; Resp 17; Temp 98.5; Pulse Ox 98% ; ll2 14:12 Body Mass Index 26.04 (66.68 kg, 160.02 cm) ca1 ED Course: 13:48 Patient arrived in ED. ag5 13:49 Aldair Watson DO is Private Physician. ag5 14:16 Triage completed. ca1 14:17 Arm band placed on right wrist. ca1 14:40 Initial lab(s) drawn, by me, sent to lab. First set of blood cultures drawn by az, 5 Second set of blood cultures drawn by az. 15:17 Bran Frey, RN is Primary Nurse. bp 15:18 Marc Delcid PA is PHCP. m 15:18 Lee Puckett MD is Attending Physician. m 15:24 Patient has correct armband on for positive identification. Placed in gown. Bed in low mh5 position. Call light in reach. Side rails up X 1. Pulse ox on. NIBP on. 16:21 XRAY Chest (1 view) In Process Unspecified. EDMS 16:40 Inserted saline lock: 20 gauge in right antecubital area, using aseptic technique. 5 Blood collected. 16:41 COVID swab sent to lab. Flu and/or RSV swab sent to lab. 5 16:41 Blood Culture Adult (2) Sent. 5 16:42 CBC with Automated Diff Sent. 5 16:42 Liver (Hepatic) Function Sent. 5 16:42 Basic Metabolic Panel Sent. 5 16:42 Lactate Sent. 5 16:42 Procalcitonin Sent. 5 16:42 Lipase Sent. 5 16:43 Basic Metabolic Panel Sent. mh5 16:43 Magnesium Sent. 5 16:43 NT PRO-BNP Sent. mh5 16:43 PT-INR Sent. 5 16:44 Troponin (emerg Dept Use Only) Sent. 5 17:58 US Abdomen Limited In Process Unspecified. EDMS 19:23 No provider procedures requiring assistance completed. IV discontinued, intact, ll2 bleeding controlled, No redness/swelling at site. Pressure dressing applied. Administered Medications: 18:15 Drug: Potassium Chloride 40 mEq Route: PO; bp 18:30 Follow up: Response: No adverse reaction bp 18:30 Drug: Decadron - Dexamethasone 10 mg Route: IVP; Site: right antecubital; bp 19:25 Follow up: Response: No adverse reaction ll2 Outcome: 18:46 Discharge ordered by . jmm 19:23 Discharged to home via wheelchair. ll2 19:23 Condition: stable 19:23 Discharge instructions given to patient, Instructed on discharge instructions, follow up and referral plans. medication usage, Demonstrated understanding of instructions, follow-up care, medications, Prescriptions given X 4. 19:25 Patient left the ED. ll2 Signatures: Dispatcher [employer] EDMS Marc Delcid PA PA jmm Martinez, Maria [facility] Bran Frey, RN RN [place] Panda RN RN [facility] Anastasiya Johnson [facility] Destiney Jaime RN RN ll2 Corrections: (The following items were deleted from the chart) 16:51 16:43 Influenza Screen (A \T\ B)+BA.LAB.BRZ drawn and sent. [facility] EDMS 16:54 16:43 CORONAVIRUS+MR.LAB.BRZ drawn and sent. [address]
--- NOTE | 2020-05-10 18:47 | EDPHYS ---
Physician Documentation [facility] Name: Araceli Celis Age: 69 yrs Sex: Female : 1950 Arrival Date: 05/10/2020 Time: 13:48 Bed 18 Private MD: Aldair Watson ED Physician Lee Puckett HPI: 05/10 15:47 This 69 yrs old Female presents to ER via Wheelchair with complaints of jmm Nausea/Vomiting, Decreased Appetite, Headache. 15:47 The patient presents to the emergency department with nausea, vomiting, abdominal pain, jmm of the epigastric area. Onset: The symptoms/episode began/occurred gradually. Possible causes: unknown. The symptoms are aggravated by nothing. The patient has not experienced similar symptoms in the past. This is a 69 year old female with a history of htn, hiatal hernia that presents ot the ED with complaints of epigastric pain, cough, congestion, sinus drainage. Patient states yesterday beginning to feel ill with episodes of vomiting which the patient stated were mainly mucus. . Historical: - Allergies: 14:17 loratadine; ca1 14:17 TETRACYCLINES; ca1 - PMHx: 14:17 Bladder problem; Hypertension; hiatal hernia; ca1 - PSHx: 14:17 bladder lift; Heart Bypass; ca1 - Immunization history:: Flu vaccine is not up to date. - Social history:: Smoking status: Patient denies any tobacco usage or history of. ROS: 15:47 Cardiovascular: Negative for chest pain, palpitations, and edema. jmm 15:47 Back: Negative for injury and pain. 15:47 Constitutional: Positive for body aches, chills, fever. 15:47 ENT: Positive for sinus congestion. 15:47 Respiratory: Positive for cough. 15:47 Abdomen/GI: Positive for abdominal pain. 15:47 All other systems are negative. Exam: 15:47 Constitutional: This is a well developed, well nourished patient who is awake, alert, jmm and in no acute distress. Head/Face: atraumatic. Eyes: EOMI, no conjunctival erythema appreciated ENT: Moist Mucus Membranes Neck: Trachea midline, Supple Chest/axilla: Normal chest wall appearance and motion. Cardiovascular: Regular rate and rhythm. No edema appreciated Respiratory: Normal respirations, no respiratory distress appreciated 15:47 Back: Normal ROM Skin: General appearance color normal MS/ Extremity: Moves all extremities, no obvious deformities appreciated, no edema noted to the lower extremities Neuro: Awake and alert, normal gait 15:47 Abdomen/GI: Inspection: abdomen appears normal, Bowel sounds: normal, Palpation: soft, mild abdominal tenderness, in the epigastric area. Vital Signs: 14:12 BP 178 / 87; Pulse 88; Resp 17 S; Temp 98.5(TE); Pulse Ox 97% on R/A; Weight 66.68 kg ca1 (R); Height 5 ft. 3 in. (160.02 cm) (R); Pain 5/10; 15:23 BP 187 / 93; Pulse 88; Resp 20; Temp 99.4; Pulse Ox 98% on R/A; mh5 16:30 BP 175 / 92; Pulse 98; Resp 17; Pulse Ox 98% ; bp 17:21 BP 173 / 91; Pulse 89; Resp 17; Pulse Ox 95% ; bp 19:20 BP 164 / 82; Pulse 80; Resp 17; Temp 98.5; Pulse Ox 98% ; ll2 14:12 Body Mass Index 26.04 (66.68 kg, 160.02 cm) ca1 MDM: 15:37 Patient medically screened. [facility] 18:45 Data reviewed: vital signs, nurses notes. Counseling: I had a detailed discussion with don the patient and/or guardian regarding: the historical points, exam findings, and any diagnostic results supporting the discharge/admit diagnosis, lab results, radiology results, the need for outpatient follow up, to return to the emergency department if symptoms worsen or persist or if there are any questions or concerns that arise at home. ED course: Patient is alert and non toxic in appearance in the ED. No signs of resp distess. patient is advised to follow up with pcp for reevaluation and otherwise given strict return precautions. Patient understood and agrees with the plan of care. . 05/10 15:56 Order name: Basic Metabolic Panel [facility] 05/10 15:56 Order name: CBC with Diff [facility] 05/10 15:56 Order name: LFT's [facility] 05/10 15:56 Order name: Magnesium; Complete Time: 17:20 [facility] 05/10 15:56 Order name: NT PRO-BNP; Complete Time: 17:20 [facility] 05/10 15:56 Order name: PT-INR; Complete Time: 16:56 [facility] 05/10 15:56 Order name: Troponin (emerg Dept Use Only); Complete Time: 17:20 [facility] 05/10 15:56 Order name: Lipase; Complete Time: 17:20 [facility] 05/10 15:56 Order name: Procalcitonin; Complete Time: 17:20 [facility] 05/10 15:56 Order name: Lactate; Complete Time: 16:56 [facility] 05/10 15:57 Order name: Basic Metabolic Panel; Complete Time: 17:20 [facility] 05/10 15:57 Order name: CBC with Automated Diff; Complete Time: 17:22 [facility] 05/10 15:56 Order name: XRAY Chest (1 view); Complete Time: 16:30 [facility] 05/10 15:56 Order name: EKG; Complete Time: 15:57 [facility] 05/10 15:56 Order name: Cardiac monitoring; Complete Time: 16:43 [facility] 05/10 15:56 Order name: EKG - Nurse/Tech; Complete Time: 16:44 [facility] 05/10 15:56 Order name: IV Saline Lock; Complete Time: 16:43 [facility] 05/10 15:56 Order name: Labs collected and sent; Complete Time: 16:43 [facility] 05/10 15:56 Order name: O2 Per Protocol; Complete Time: 16:00 [facility] 05/10 15:56 Order name: O2 Sat Monitoring; Complete Time: 16:00 [facility] 05/10 15:57 Order name: Liver (Hepatic) Function; Complete Time: 17:20 [facility] 05/10 15:57 Order name: Blood Culture Adult (2) [facility] 05/10 15:57 Order name: US Abdomen Limited; Complete Time: 18:05 [facility] 05/10 16:49 Order name: Manual Differential; Complete Time: 17:22 [facility] 05/10 16:59 Order name: Urine Dipstick--Ancillary (enter results); Complete Time: 17:20 05/10 18:14 Order name: COVID-19/FLU A+B; Complete Time: 18:15 [facility] 05/10 15:56 Order name: Urine Dipstick-Ancillary (obtain specimen); Complete Time: 16:42 jm Administered Medications: 18:15 Drug: Potassium Chloride 40 mEq Route: PO; bp 18:30 Follow up: Response: No adverse reaction bp 18:30 Drug: Decadron - Dexamethasone 10 mg Route: IVP; Site: right antecubital; bp 19:25 Follow up: Response: No adverse reaction ll2 Disposition: 05/10/20 18:46 Discharged to Home. Impression: Coronavirus infection, unspecified. - Condition is Stable. - Discharge Instructions: COVID-19. - Prescriptions for ivermectin 3 mg Oral tablet - take 6 tablet by ORAL route as directed one dose on day 1 and one dose on day 3; 12 tablet. Prednisone 20 mg Oral Tablet - take 3 tablet by ORAL route once daily for 5 days; 15 tablet. Albuterol Sulfate 90 mcg/actuation - inhale 1-2 puff by INHALATION route every 4-6 hours; 1 Inhaler. Cephalexin 500 mg Oral Capsule - take 1 capsule by ORAL route every 8 hours for 10 days; 30 capsule. - Medication Reconciliation Form, Thank You Letter, Antibiotic Education, Prescription Opioid Use form. - Follow up: Private Physician; When: 2 - 3 days; Reason: Recheck today's complaints, Continuance of care, Re-evaluation by your physician. Addendum: 05/15/2020 07:55 Co-signature as Attending Physician, Lee Puckett MD. r n Signatures: Dispatcher [employer] EDMI Marc Delcid PA PA Lee Estrada MD MD rn Peltier, Brian, RN RN bp La Panda RN RN ca1 Destiney Jaime RN RN ll2 Corrections: (The following items were deleted from the chart) 05/10 16:51 15:57 Influenza Screen (A \T\ B)+BA.LAB.BRZ ordered. EDMS EDMS 16:54 15:57 CORONAVIRUS+MR.LAB.BRZ ordered. EDMS EDMS 19:25 18:46 05/10/2020 18:46 Discharged to Home. Impression: Coronavirus infection, ll2 unspecified. Condition is Stable. Forms are Medication Reconciliation Form, Thank You Letter, Antibiotic Education, Prescription Opioid Use. Follow up: Private Physician; When: 2 - 3 days; Reason: Recheck today's complaints, Continuance of care, Re-evaluation by your physician. johnson
[2020-05-10] MEDS ORDERED: dexAMETHasone 10 MG/ML VIAL ONE ×2 (19:25→19:30)
--- NOTE | 2020-05-11 05:37 | EKG ---
Test Date: 2020-05-10 Test Time: 16:59:12 Setter Induction Heating Equipment: JUSTUS MEASUREMENT RESULTS: Intervals: Rate: 96 OH: 182 QRSD: 80 QT: 362 QTc: 457 [place]: P: 62 OH: 182 QRS: 43 T: 155 INTERPRETIVE STATEMENTS: Normal sinus rhythm Possible Left atrial enlargement ST & T wave abnormality, consider inferolateral ischemia Abnormal ECG Compared to ECG 10/10/2018 02:39:39 Possible ischemia now present Prolonged QT interval no longer present ST (T wave) deviation still present Electronically Signed On 05-11-20 05:35:24 RAILROAD HAND by Neil Hoffman
== END 2020-05-10 19:25 | disposition home or self-care (01) ==
LOC: ER 13:45
DX: U07.1 COVID-19 (principal); I10 Essential (primary) hypertension; Z88.1 Allergy status to other antibiotic agents; Z88.8 Allergy status to other drugs, medicaments and biological substances; Z95.1 Presence of aortocoronary bypass graft
CPT/HCPCS: 93005; 87040 ×2; 85025; 80048; 36415; 83735; 85610; 80076; 83605; 81003; 84484; 83690; 84145; 83880; 0240U; 71045; 76705; 96374; 99284; J1100 ×2

== ENCOUNTER 2020-06-02 10:18 | Emergency (ER) | payer OTHER ==
[2020-06-02 13:34] LABS: Urine Blood 1+ (NEG); Urine Glucose NEGATIVE (NEG); Urine Protein 1+ (NEG); Urine Specific Gravity 1.015 (1.005-1.030)
[2020-06-02] MEDS ORDERED: NA CHLORIDE 0.9% 500 ML ONE (13:58)
[2020-06-02 14:07] LABS: Absolute Lymphocytes (CBC) 1.6 K/uL (0.7-4.9); Basophils % 0.4 % (0-1.3); Hematocrit 40.6 % (36.0-45.0); Lymphocytes % 16.2 % (15.3-44.8); MPV 8.1 fL (7.6-11.3); RBC Red Blood Cell Count 4.45 M/uL (3.86-4.86)
[2020-06-02 14:24] LABS: Potassium 3.7 mmol/L (3.5-5.1)
--- NOTE | 2020-06-02 15:35 | ER ---
Nurse's Notes [facility] Name: Araceli Celis Age: 69 yrs Sex: Female : 1950 Arrival Date: 06/02/2020 Time: 10:22 Bed 23 Private MD: Diagnosis: Urinary tract infection, site not specified;Weakness Presentation: 06/02 11:02 Chief complaint: Patient states: I am scheduled for a bladder lift on June. My doctor ca1 for now prescribed me ABX for UTI. Started taking it on the 16, a day after I feel weak all over, my balance is off, I couldn't walk, I couldn't drive. I took the medication before and did not have the same effect. I had Covid on 05/11/2020. Coronavirus screen: Client reports previous positive COVID test result. Date of collection: May 11, 2020 Staff notified of need for isolation. Ebola Screen: Patient negative for fever greater than or equal to 101.5 degrees Fahrenheit, and additional compatible Ebola Virus Disease symptoms Patient denies exposure to infectious person. Patient denies travel to an Ebola-affected area in the 21 days before illness onset. No symptoms or risks identified at this time. Initial Sepsis Screen: Does the patient meet any 2 criteria? No. Patient's initial sepsis screen is negative. Does the patient have a suspected source of infection? No. Patient's initial sepsis screen is negative. Risk Assessment: Do you want to hurt yourself or someone else? Patient reports no desire to harm self or others. Onset of symptoms was June 02, 2020. 11:02 Method Of Arrival: Ambulatory ca1 11:02 Acuity: CASTRO 3 ca1 Historical: - Allergies: 11:08 loratadine; ca1 11:08 TETRACYCLINES; ca1 - PMHx: 11:08 Bladder problem; Hypertension; hiatal hernia; ca1 - PSHx: 11:08 bladder lift; Heart Bypass; ca1 - Immunization history:: Pneumococcal vaccine is not up to date, Flu vaccine is up to date. - Social history:: Smoking status: Patient denies any tobacco usage or history of. Screenin:17 Abuse screen: Denies threats or abuse. Nutritional screening: No deficits noted. vg1 Tuberculosis screening: No symptoms or risk factors identified. Fall Risk No fall in past 12 months (0 pts). No secondary diagnosis (0 pts). IV access (20 points). Ambulatory Aid- None/Bed Rest/Nurse Assist (0 pts). Gait- Normal/Bed Rest/Wheelchair (0 pts) Mental Status- Oriented to own ability (0 pts). Total [place] Fall Scale indicates No Risk (0-24 pts). Assessment: 11:55 General: Appears in no apparent distress. comfortable, Behavior is calm, cooperative. vg1 Pain: Denies pain. Neuro: Level of Consciousness is awake, alert, obeys commands, Oriented to person, place, time, situation. Cardiovascular: Patient's skin is warm and dry. Respiratory: Airway is patent Respiratory effort is even, unlabored. GI: No signs and/or symptoms were reported involving the gastrointestinal system. : Reports is having issues with bladder and has a surgery scheduled on June 23. Pt states just 'feels weak' and states 'its maybe because hasnt worked out in a couple of months'. EENT: No signs and/or symptoms were reported regarding the EENT system. Derm: Skin is intact, is healthy with good turgor. Musculoskeletal: Circulation, motion, and sensation intact. 13:28 Reassessment: Provider at bedside. vg1 13:35 Reassessment: Patient appears in no apparent distress at this time. No changes from vg1 previously documented assessment. Patient and/or family updated on plan of care and expected duration. Pain level reassessed. Patient is alert, oriented x 3, equal unlabored respirations, skin warm/dry/pink. Vital Signs: 11:02 BP 152 / 98; Pulse 75; Resp 16 S; Temp 97.5(TE); Pulse Ox 97% on R/A; Weight 65.32 kg ca1 (R); Height 5 ft. 2 in. (157.48 cm) (R); Pain 0/10; 11:55 BP 174 / 75; Pulse 78; Resp 18; Pulse Ox 98% on R/A; vg1 13:36 BP 153 / 86; Pulse 78; Resp 16; Pulse Ox 98% on R/A; vg1 14:24 BP 157 / 78; Pulse 71; Resp 18; Pulse Ox 97% ; dh4 11:02 Body Mass Index 26.34 (65.32 kg, 157.48 cm) ca1 ED Course: 10:22 Patient arrived in ED. as 11:07 Triage completed. ca1 11:08 Arm band placed on right wrist. ca1 11:52 Edith Soto, RN is Primary Nurse. vg1 12:17 Patient has correct armband on for positive identification. Bed in low position. Call vg1 light in reach. Side rails up X 1. 12:32 Amilcar Hernandez MD is Attending Physician. kdr 13:52 Initial lab(s) drawn, by ia, sent to lab. Inserted saline lock: 20 gauge in right vg1 antecubital area, using aseptic technique. Blood collected. 15:46 No provider procedures requiring assistance completed. IV discontinued, intact, vg1 bleeding controlled, No redness/swelling at site. Pressure dressing applied. Administered Medications: 13:52 Drug: NS 0.9% 500 ml Route: IV; Rate: bolus; Site: right antecubital; vg1 14:27 Follow up: IV Status: Completed infusion vg1 15:33 Drug: Bactrim (160 mg-800 mg (DS) 1 tablet Route: PO; vg1 15:46 Follow up: Response: Medication administered at discharge. vg1 Outcome: 15:34 Discharge ordered by . kdr 15:46 Discharged to home ambulatory. vg1 15:46 Condition: stable 15:46 Discharge instructions given to patient, Instructed on discharge instructions, follow up and referral plans. medication usage, Demonstrated understanding of instructions, follow-up care, medications, Prescriptions given X 1. 15:47 Patient left the ED. vg1 Signatures: Amilcar Hernandez MD MD kdr So Fernandes Cheryl RN RN [facility] Jose David Valdes [facility] Edith Soto, RN RN vg1
--- NOTE | 2020-06-02 15:35 | EDPHYS ---
Physician Documentation [facility] Name: Araceli Celis Age: 69 yrs Sex: Female : 1950 Arrival Date: 06/02/2020 Time: 10:22 Bed 23 Private MD: ED Physician Amilcar Hernandez HPI: 06/02 15:18 This 69 yrs old Female presents to ER via Ambulatory with complaints of kdr medication reaction. 15:18 The patient states she was sent from Dr. Watson's office after she began taking Macrobid kdr for a UTI. The patient sates that she tends to have mild vague reactions like this to different medications that she has taken. She had been on another medication and had numbness to both upper extremities from the elbow down. Onset: The symptoms/episode began/occurred yesterday. Severity of symptoms: At their worst the symptoms were very mild in the emergency department the symptoms have resolved and did so earlier today, have improved. The patient has not experienced similar symptoms in the past. The patient has been recently seen by a physician: the patient's primary care provider. Historical: - Allergies: 11:08 loratadine; ca1 11:08 TETRACYCLINES; ca1 - PMHx: 11:08 Bladder problem; Hypertension; hiatal hernia; ca1 - PSHx: 11:08 bladder lift; Heart Bypass; ca1 - Immunization history:: Pneumococcal vaccine is not up to date, Flu vaccine is up to date. - Social history:: Smoking status: Patient denies any tobacco usage or history of. ROS: 15:18 Constitutional: Negative for fever, chills, and weight loss, Eyes: Negative for injury, kdr pain, redness, and discharge, ENT: Negative for injury, pain, and discharge, Neck: Negative for injury, pain, and swelling, Cardiovascular: Negative for chest pain, palpitations, and edema, Respiratory: Negative for shortness of breath, cough, wheezing, and pleuritic chest pain, Abdomen/GI: Negative for abdominal pain, nausea, vomiting, diarrhea, and constipation, Back: Negative for injury and pain, : Negative for injury, bleeding, discharge, and swelling, MS/Extremity: Negative for injury and deformity, Skin: Negative for injury, rash, and discoloration, Neuro: Negative for headache, weakness, tingling, and seizure activity. She does claim to have numbness from the elbowl down. It has resolved at the time of the exam Psych: Negative for depression, anxiety, suicide ideation, homicidal ideation, and hallucinations, Allergy/Immunology: Negative for hives, rash, and allergies, Endocrine: Negative for neck swelling, polydipsia, polyuria, polyphagia, and marked weight changes, Hematologic/Lymphatic: Negative for swollen nodes, abnormal bleeding, and unusual bruising. Exam: 15:18 Constitutional: This is a well developed, well nourished patient who is awake, alert, kdr and in no acute distress. Head/Face: Normocephalic, atraumatic. Eyes: Pupils equal round and reactive to light, extra-ocular motions intact. Lids and lashes normal. Conjunctiva and sclera are non-icteric and not injected. Cornea within normal limits. Periorbital areas with no swelling, redness, or edema. Neck: Trachea midline, no thyromegaly or masses palpated, and no cervical lymphadenopathy. Supple, full range of motion without nuchal rigidity, or vertebral point tenderness. No Meningismus. Chest/axilla: Normal chest wall appearance and motion. Nontender with no deformity. No lesions are appreciated. Cardiovascular: Regular rate and rhythm with a normal S1 and S2. No gallops, murmurs, or rubs. Normal PMI, no JVD. No pulse deficits. Respiratory: Lungs have equal breath sounds bilaterally, clear to auscultation and percussion. No rales, rhonchi or wheezes noted. No increased work of breathing, no retractions or nasal flaring. Abdomen/GI: Soft, non-tender, with normal bowel sounds. No distension or tympany. No guarding or rebound. No evidence of tenderness throughout. Back: No spinal tenderness. No costovertebral tenderness. Full range of motion. Female : Normal external genitalia. MS/ Extremity: Pulses equal, no cyanosis. Neurovascular intact. Full, normal range of motion. Neuro: Awake and alert, GCS 15, oriented to person, place, time, and situation. Cranial nerves II-XII grossly intact. Motor strength 5/5 in all extremities. Sensory grossly intact. Cerebellar exam normal. Normal gait. Psych: Awake, alert, with orientation to person, place and time. Behavior, mood, and affect are within normal limits. Vital Signs: 11:02 BP 152 / 98; Pulse 75; Resp 16 S; Temp 97.5(TE); Pulse Ox 97% on R/A; Weight 65.32 kg ca1 (R); Height 5 ft. 2 in. (157.48 cm) (R); Pain 0/10; 11:55 BP 174 / 75; Pulse 78; Resp 18; Pulse Ox 98% on R/A; vg1 13:36 BP 153 / 86; Pulse 78; Resp 16; Pulse Ox 98% on R/A; vg1 14:24 BP 157 / 78; Pulse 71; Resp 18; Pulse Ox 97% ; dh4 11:02 Body Mass Index 26.34 (65.32 kg, 157.48 cm) ca1 MDM: 15:18 Data reviewed: vital signs, nurses notes, lab test result(s). Counseling: I had a kdr detailed discussion with the patient and/or guardian regarding: the historical points, exam findings, and any diagnostic results supporting the discharge/admit diagnosis, lab results, the need for outpatient follow up. 15:34 Patient medically screened. kdr 06/02 13:14 Order name: Urine Dipstick--Ancillary (enter results) eb 06/02 13:35 Order name: CBC with Diff kdr 06/02 13:35 Order name: Chem 7 kdr 06/02 13:36 Order name: CBC with Automated Diff; Complete Time: 15:08 EDNC 06/02 13:36 Order name: Basic Metabolic Panel; Complete Time: 15:08 EDNC 06/02 13:40 Order name: IV; Complete Time: 13:51 vg1 Administered Medications: 13:52 Drug: NS 0.9% 500 ml Route: IV; Rate: bolus; Site: right antecubital; vg1 14:27 Follow up: IV Status: Completed infusion vg1 15:33 Drug: Bactrim (160 mg-800 mg (DS) 1 tablet Route: PO; vg1 15:46 Follow up: Response: Medication administered at discharge. vg1 Disposition: 06/02/20 15:34 Discharged to Home. Impression: Urinary tract infection, site not specified, Weakness. - Condition is Stable. - Discharge Instructions: Fatigue, Urinary Tract Infection, Adult, [id number]. - Prescriptions for Bactrim DS 800- 160 mg Oral Tablet - take 1 tablet by ORAL route every 12 hours for 10 days; 20 tablet. - Medication Reconciliation Form, Thank You Letter, Antibiotic Education form. - Follow up: Private Physician; When: 1 - 2 days; Reason: If symptoms return, Further diagnostic work-up, Recheck today's complaints, Continuance of care, Re-evaluation by your physician. - Problem is new. - Symptoms are resolved. Signatures: Dispatcher [employer] EDNC Amilcar Hernandez MD MD kdr Acob, La RN RN ca1 Edith Soto RN RN vg1 Corrections: (The following items were deleted from the chart) 15:47 15:34 06/02/2020 15:34 Discharged to Home. Impression: Urinary tract infection, site vg1 not specified; Weakness. Condition is Stable. Forms are Medication Reconciliation Form, Thank You Letter, Antibiotic Education, Prescription Opioid Use. Follow up: Private Physician; When: 1 - 2 days; Reason: If symptoms return, Further diagnostic work-up, Recheck today's complaints, Continuance of care, Re-evaluation by your physician. Problem is new. Symptoms are resolved. kdr
[2020-06-02] MEDS ORDERED: SMZ./TMP. 800/160 MG TABLET ONE (15:48)
[2020-06-02 15:54] VITALS: TEMP 97.5
[2020-06-02 15:58] VITALS: BP 157/78; O2SAT 97
== END 2020-06-02 15:47 | disposition home or self-care (01) ==
LOC: ER 10:18
DX: N39.0 Urinary tract infection, site not specified (principal); I10 Essential (primary) hypertension; Z95.1 Presence of aortocoronary bypass graft; Z88.1 Allergy status to other antibiotic agents; Z88.8 Allergy status to other drugs, medicaments and biological substances
CPT/HCPCS: 85025; 80048; 36415; 81003; 96360; 99284; J7040